=== PATIENT | female | born 1985 | race Caucasian/White ===

== ENCOUNTER 2019-04-25 05:12 | Emergency (ER) | payer MEDICAID, SELFPAY ==
[2019-04-25 05:25] VITALS: BP 132/85; PULSE 100; RESP 18; TEMP 37.2; O2SAT 97; BMI 30.1
--- NOTE | 2019-04-25 05:33 | PC.NURSE ---
Patient states she started feeling like crap yesterday morning. Patient states she is having weakness, fatigue, and that she had a fever yesterday. Patient states she has a dry cough and congestion and that it is making it feel like its hard to catch her breath.
[2019-04-25 05:38] VITALS: BP 115/85; PULSE 93; RESP 18; O2SAT 96
--- NOTE | 2019-04-25 05:38 | ED_ITS ---
Entered by Sharita Bar, acting as scribe for Teja Parish DO Apr 25, 2019 05:12 HPI - Fever General: Chief Complaint: Fever Stated Complaint: FLU SYMPTOMS Time Seen by Provider: 04/25/19 05:39 Source: patient Mode of arrival: ambulatory History of Present Illness: HPI Narrative: 33 y/o female presents to the ED with complaint of cough, body aches and PRATT. Pt states this started yesterday morning. 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 She denies N/V/D but had a temp of 102 yesterday. She reports coughing to the point of having chest discomfort. MD elicited complaint: malaise and other (cough, body aches) Onset (ago): day(s) Exacerbating factors: other (cough) Associated symptoms: Reports chills, chest pain (chest discomfort with coughing), cough and headache(s); Deny abdominal pain, confusion, dysuria, nausea, sinus pain or vomiting Review of Systems Const: Reports: fever and chills Eyes: Denies: change in vision or blurry vision ENMT: Reports: painful swallowing and post nasal drip; Denies: swelling of lips/tongue or facial/sinus pain Card: Reports: chest pain (chest discomfort with coughing); Denies: palpitations, irregular heart rhythm, edema or swelling of feet/ankles Resp: Reports: shortness of breath (with coughing) and non-productive cough; Denies: productive cough or wheezing GI: Denies: abdominal pain, nausea or vomiting : Denies: painful urination or blood in urine Musc: Reports: back pain; Denies: redness or joint warmth Skin/Breast: Denies: rash, itching or redness Neuro: Reports: headache; Denies: dizziness, vertigo or confusion Psych: Denies: anxiety PFSH ED PFSH: Social History Smoking and tobacco status: current every day smoker Female Reproductive History: Date of last menstrual period: 03/23/19 Physical Exam Const: COMMON NORMALS: alert GENERAL APPEARANCE: well developed and ill appearing ORIENTATION/CONSCIOUSNESS: Yes awake, Yes oriented to person, Yes oriented to place and Yes oriented to time HENMT: COMMON NORMALS: normocephalic, external ears normal, external nose normal and moist oral mucous membranes (dry) HEAD & SCALP: normocephalic; no scalp tenderness FACE & SINUS: normal facial exam NOSE: external nose normal and no nasal discharge EXTERNAL EAR: Yes external ears normal MOUTH: tongue normal THROAT: posterior oropharynx normal; no peritonsillar mass Eye: COMMON NORMALS: PERRL, EOMs intact bilaterally and conjunctivae normal EYELID: eyelids normal CONJUNCTIVA: Yes conjunctivae normal PUPIL: Yes PERRL Neck/C-Spine: COMMON NORMALS: full ROM Chest: COMMONS NORMALS: inspection of chest normal CHEST: Yes symmetrical chest wall rise and Yes tenderness Resp: COMMON NORMALS: clear to auscultation bilaterally EFFORT & INSPECTION: No tachypneic, No respiratory distress, No retractions, No uses accessory muscles and No tracheal deviation AUSCULTATION: clear to auscultation bilaterally and rhonchi (right side - cleared with cough) Cardio: COMMON NORMALS: regular rate and regular rhythm RATE: regular rate RHYTHM: regular rhythm HEART SOUNDS: no murmurs PERIPHERAL PULSES: radial pulses present GI: INSPECTION: No abdominal distension AUSCULTATION: No hyperactive bowel sounds and No hypoactive bowel sounds PALPATION: No tender, No guarding and No rigid PERCUSSION: no dullness to percussion and no tympanic to percussion Neuro: SENSORIUM/ORIENTATION: Yes alert, Yes oriented to person, Yes oriented to place and Yes oriented to time Psych: COMMON NORMALS: mental status grossly normal and speech normal SPEECH: Yes normal speech Skin: COMMON NORMALS: no rashes or lesions noted GENERAL SKIN EXAM: no rashes or lesions noted Course Vital Signs: Vital signs: Vital Signs Temperature 98.9 F 04/25/19 05:25 Pulse Rate 93 04/25/19 05:38 Respiratory Rate 14 04/25/19 06:04 Blood Pressure 115/85 04/25/19 05:38 Pulse Oximetry 96 04/25/19 06:04 MDM - Fever MDM Narrative: Medical decision making narrative: 33-year-old female presents with cough, some shortness of breath, fever, and body aches with a headache. She is influenza B positive. Her white blood cell count is 6.3. Her labs are otherwise benign. Her chest x-ray shows some perihilar opacity suggestive of viral pneumonitis. She had a brief period of decreased responsiveness while she was in x-ray, but returned to baseline quickly. This was right after receiving some pain medication and having a coughing fit. She had no true seizure. She will be discharged. Lab Data: Labs: Lab Results 04/25/19 04/25/19 04/25/19 Range/Units 05:36 05:56 06:08 WBC 6.3 (4.0-10.0) 10^3/ uL RBC 4.53 (4.1-5.3) 10^6/u L Hgb 14.0 (11.5-15.3) g/dL Hct 42.0 (37.0-47.0) % MCV 92.7 (81-99) fL MCH 30.9 (28.0-34.0) pg MCHC 33.3 (30.0-36.0) g/dL RDW 11.8 L (12.1-15.1) % Plt Count 344 (130-400) 10^3/c mm MPV 9.9 (7.4-10.4) fL Neut % (Auto) 72.1 % Lymph % (Auto) 18.0 % [place] % (Auto) 8.5 % Eos % (Auto) 0.5 % Baso % (Auto) 0.6 % Neut # (Auto) 4.6 (1.8-7.7) 10^3/u L Lymph # (Auto) 1.1 (0.8-4.8) 10^3/u L [place] # (Auto) 0.5 (0.2-0.9) 10^3/u L Eos # (Auto) 0.0 (0.0-0.8) 10^3/u L Baso # (Auto) 0.0 (0.0-0.1) 10^3/u L Nucleated RBC % (a uto) 0 % Nucleated RBCs # 0.0 /100WBC Sodium (136-145) mmol/L Potassium (3.5-5.1) mmol/L Chloride (98-107) mmol/L Carbon Dioxide (22-29) mmol/L Anion Gap (5-19) BUN (6-20) mg/dL Creatinine (0.5-0.9) mg/dL GFR Calculation (90-130) mL/min Glucose (65-115) mg/dL Calculated Osmolal ity (285-295) mOsm/k g Calcium (8.5-10.5) mg/dL Total Bilirubin (0.15-1.2) mg/dL AST (0-32) U/L ALT (0-33) U/L Alkaline Phosphata se (35-105) IU/L Total Protein (6.6-8.7) g/dL Albumin (3.5-5.2) g/dL Globulin (1.3-4.6) g/dL Urine Color Yellow (Yellow) Urine Appearance Clear (CLEAR) Urine pH 7 (5-7) Ur Specific Gravit y 1.005 (1.005-1.030) Urine Protein Neg (Negative) Urine Glucose (UA) Norm (Normal) Urine Ketones Negative (Negative) Urine Blood Neg (Negative) Urine Nitrate Negative (Negative) Urine Bilirubin Neg (NEGATIVE) Urine Urobilinogen Norm (Negative) mg/dL Ur Leukocyte Sharmila ase Negative (Negative) Influenza Type A A g Negative (Negative) POC Influenza B Ag Positive H (Negative) 04/25/19 Range/Units 06:27 WBC (4.0-10.0) 10^3/ uL RBC (4.1-5.3) 10^6/u L Hgb (11.5-15.3) g/dL Hct (37.0-47.0) % MCV (81-99) fL MCH (28.0-34.0) pg MCHC (30.0-36.0) g/dL RDW (12.1-15.1) % Plt Count (130-400) 10^3/c mm MPV (7.4-10.4) fL Neut % (Auto) % Lymph % (Auto) % [place] % (Auto) % Eos % (Auto) % Baso % (Auto) % Neut # (Auto) (1.8-7.7) 10^3/u L Lymph # (Auto) (0.8-4.8) 10^3/u L [place] # (Auto) (0.2-0.9) 10^3/u L Eos # (Auto) (0.0-0.8) 10^3/u L Baso # (Auto) (0.0-0.1) 10^3/u L Nucleated RBC % (a uto) % Nucleated RBCs # /100WBC Sodium 136 (136-145) mmol/L Potassium 3.7 (3.5-5.1) mmol/L Chloride 104 (98-107) mmol/L Carbon Dioxide 22 (22-29) mmol/L Anion Gap 13.7 (5-19) BUN 8 (6-20) mg/dL Creatinine 0.5 (0.5-0.9) mg/dL GFR Calculation 141.2 H (90-130) mL/min Glucose 111 (65-115) mg/dL Calculated Osmolal ity 279 L (285-295) mOsm/k g Calcium 8.7 (8.5-10.5) mg/dL Total Bilirubin 0.3 (0.15-1.2) mg/dL AST 13 (0-32) U/L ALT 12 (0-33) U/L Alkaline Phosphata se 64 (35-105) IU/L Total Protein 6.3 L (6.6-8.7) g/dL Albumin 3.7 (3.5-5.2) g/dL Globulin 2.6 (1.3-4.6) g/dL Urine Color (Yellow) Urine Appearance (CLEAR) Urine pH (5-7) Ur Specific Gravit y (1.005-1.030) Urine Protein (Negative) Urine Glucose (UA) (Normal) Urine Ketones (Negative) Urine Blood (Negative) Urine Nitrate (Negative) Urine Bilirubin (NEGATIVE) Urine Urobilinogen (Negative) mg/dL Ur Leukocyte Sharmila ase (Negative) Influenza Type A A g (Negative) POC Influenza B Ag (Negative) Discharge Plan Discharge Patient Disposition: Home, Self-Care Clinical Impression: Influenza Condition: Stable Prescriptions: New Tamiflu 75 mg capsule 75 mg PO BID 5 Days Qty: 10 RF: 0 Percocet 5-325 mg tablet 1 tab PO Q6H PRN (Reason: pain) Qty: 7 RF: 0 albuterol sulfate 90 mcg/actuation HFA aerosol inhaler 2 inh INHALATION Q6H PRN (Reason: shortness of breath) Qty: 18 RF: 0 Discharge Orders: Discharge Order (Routine); Ordered 04/25/19 Ordered By: Teja Parish Referrals: Jossie,Mchugh, LOADING DOCK HELPER [Primary Care Provider] - 1-3 days Discharge Diet: Advance as tolerated Discharge Activity: Limit activity as instructed Patient Instructions: Influenza (ED) Activity Restrictions/Additional Instructions: Return for worsening shortness of breath, inability to control fever, vomiting liquids or medications, worsening mental status, other concerning symptoms. Occasions as directed. Coding Level of Care Code ED Cryptozoologist for Chg Fwd Exam Comprehensive The documentation recorded by the Yosvany salazar Ashley, accurately reflects the service I personally performed and the decisions made by Jem lala Jeremy John, DO Apr 25, 2019 05:12
--- NOTE | 2019-04-25 05:44 | XRR_ITS ---
PROCEDURE INFORMATION: Exam: XR Chest, 1 View Exam date and time: 04/25/2019 6:19 AM Age: 33 years old Clinical indication: Shortness of breath; Additional info: SOB TECHNIQUE: Imaging protocol: XR of the chest Views: 1 view. COMPARISON: CR Chest 1 [place] [id number] 02/27/2018 5:58 AM FINDINGS: Lungs: Unremarkable. No consolidation. Pleural space: Unremarkable. No pleural effusion. No pneumothorax. Heart/Mediastinum: Unremarkable. No cardiomegaly. Bones/joints: Unremarkable. XR/XR chest 1V portable [id number] IMPRESSION: No acute findings.
[2019-04-25 06:04] VITALS: RESP 14; O2SAT 96
[2019-04-25] MEDS: morphine 4 mg/mL SDV 1 mL IVP (06:04)
[2019-04-25] MEDS: ketorolac 30 mg/mL INJ IVP (06:04)
[2019-04-25 06:05] LABS: Add Urine Microscopic? NO
[2019-04-25] MEDS: sodium chloride 0.9% 1,000 ML 999 ML IV (06:05)
[2019-04-25 06:09] LABS: Bilirubin Urine Neg (NEGATIVE); Blood Urine Neg (Negative); Glucose Urine UA Norm (Normal); Ketones Urine Negative (Negative); Leukocyte Esterase Urine Negative (Negative); Nitrate Urine Negative (Negative); Protein Urine Neg (Negative); Specific Gravity, Urine 1.005 (1.005-1.030); Urine Appearance Clear (CLEAR); Urine Color Yellow (Yellow); Urobilinogen Urine Norm (Negative); pH Urine 7 (5-7)
[2019-04-25 06:17] LABS: Basophils % 0.6 %; Eosinophils % 0.5 %; Lymphocytes # 1.1 10^3/uL (0.8-4.8); Mean Corpuscular HGB Conc 33.3 g/dL (30.0-36.0); Mean Corpuscular Hemoglobin 30.9 pg (28.0-34.0); Mean Corpuscular Volume 92.7 fL (81-99); Mean Platelet Volume 9.9 fL (7.4-10.4); Monocytes # 0.5 10^3/uL (0.2-0.9); Monocytes % 8.5 %; Neutrophils # 4.6 10^3/uL (1.8-7.7); Neutrophils % 72.1 %; Nucleated Red Blood Cells % 0 %; Platelet Count 344 10^3/cmm (130-400); Red Blood Count 4.53 10^6/uL (4.1-5.3); Red Cell Distribution Width 11.8 % (12.1-15.1); White Blood Count 6.3 10^3/uL (4.0-10.0)
[2019-04-25 06:19] LABS: Influenza A by IFA Negative (Negative); Influenza B by IFA Positive (Negative)
--- NOTE | 2019-04-25 06:28 | PC.NURSE ---
Patient moved from room 13 to room 10 and placed in negative pressure with droplet and airbourne precautions per HCP orders.
[2019-04-25 06:49] LABS: Alanine Aminotransferase 12 U/L (0-33); Albumin Level 3.7 g/dL (3.5-5.2); Alkaline Phosphatase 64 IU/L (35-105); Anion Gap 13.7 (5-19); Aspartate Amino Transferase 13 U/L (0-32); Blood Urea Nitrogen 8 mg/dL (6-20); Calcium 8.7 mg/dL (8.5-10.5); Carbon Dioxide 22 mmol/L (22-29); Chloride 104 mmol/L (98-107); Globulin 2.6 g/dL (1.3-4.6); Glomerular Filtration Rate 141.2 mL/min (90-130); Glucose 111 mg/dL (65-115); Osmolality Calculated 279 mOsm/kg (285-295); Potassium 3.7 mmol/L (3.5-5.1); Sodium 136 mmol/L (136-145); Total Bilirubin 0.3 mg/dL (0.15-1.2); Total Protein 6.3 g/dL (6.6-8.7)
[2019-04-25 07:07] VITALS: RESP 17
[2019-04-25] MEDS: fentaNYL 50 mcg/mL INJ 2mL 100 MCG IVP (07:07)
[2019-04-25 07:27] VITALS: BP 108/68; PULSE 86; RESP 17; TEMP 37.2; O2SAT 96
== END 2019-04-25 07:29 | disposition home or self-care (01) ==
PROVIDERS: Emergency Provider Emergency Medicine; Family Provider Nurse Practitioner Family; PCP Nurse Practitioner Family
DX: J11.1 Influenza due to unidentified influenza virus with other respiratory manifestations (principal); F17.200 Nicotine dependence, unspecified, uncomplicated
CPT/HCPCS: 12345; 71045; 80053; 81003; 85025; 87804; 96360; 96361; 96374; 96375; 99283; A9270; J1885; J2270; J3010; J7030

== ENCOUNTER 2020-05-11 07:36 | Emergency (ER) | payer MEDICAID, SELFPAY ==
[2020-05-11 07:40] VITALS: BP 137/92; PULSE 92; RESP 18; TEMP 36.9; O2SAT 99; BMI 27.4
--- NOTE | 2020-05-11 07:41 | XR_ITS ---
WS: [id number] Abdomen series: PA CHEST AND 2 VIEWS OF THE ABDOMEN HISTORY: abd pain/no BM several days COMPARISON: 12/07/2016 Lungs are clear and well aerated. Heart size is normal. No free air beneath the diaphragm. Mild inspissated fecal material in the distal colon. Mild constipation in the remaining colon. No air -fluid levels or obstruction. No soft tissue masses or soft tissue displacement. Calcification in the RIGHT upper abdomen may be in the liver. Prior cholecystectomy. XR/XR acute abdomen series [id number] IMPRESSION: 1. No pneumonia or free air. 2. Mild constipation and fecal obstipation in the distal colon.
[2020-05-11 07:47] VITALS: RESP 18
[2020-05-11] MEDS: ondansetron 2 mg/ML SDV 2 mL 4 MG IVP (08:01)
[2020-05-11 08:03] LABS: Basophils # 0.1 10^3/uL (0.0-0.1); Basophils % 0.9 %; Eosinophils # 0.1 10^3/uL (0.0-0.8); Eosinophils % 1.6 %; Hematocrit 44.9 % (37.0-47.0); Lymphocytes # 2.1 10^3/uL (0.8-4.8); Lymphocytes % 31.2 %; Mean Corpuscular HGB Conc 33.4 g/dL (30.0-36.0); Mean Corpuscular Hemoglobin 30.1 pg (28.0-34.0); Mean Platelet Volume 8.8 fL (7.4-10.4); Monocytes # 0.5 10^3/uL (0.2-0.9); Monocytes % 7.4 %; Neutrophils # 3.96 10^3/uL (1.8-7.7); Neutrophils % 58.6 %; Nucleated Red Blood Cells % 0 %; Platelet Count 391 10^3/cmm (130-400); Red Blood Count 4.99 10^6/uL (4.1-5.3); Red Cell Distribution Width 11.4 % (12.1-15.1); White Blood Count 6.8 10^3/uL (4.0-10.0)
[2020-05-11 08:05] LABS: Add Urine Microscopic? NO
--- NOTE | 2020-05-11 08:17 | W.ED.NAVMDI ---
HPI - Nausea/Vomiting/Diarrhea General: Chief complaint: Nausea/Vomiting/Diarrhea Stated complaint: NAUSEA, NO BOWEL MOVEMENTS FOR DAYS Time Seen by Provider: 05/11/20 07:38 History of Present Illness: HPI Narrative: 34-year-old female presents emergency room with complaint of abdominal discomfort. She is not had a bowel movement she states in about 2 weeks progressively increasing abdominal cramping. She is a lot of nausea and couple episodes of vomiting. She denies any hematochezia melena hematemesis or coffee-ground emesis. She not had any fever sweats or chills. She denies dysuria urgency or frequency. MD elicited complaint: nausea, vomiting and abdominal pain Pertinent past history: other (Chronic constipation) Onset (ago): week(s) (2) Associated nausea: Yes Associated abdominal pain: Yes Location of pain: Diffuse Pain consistency: intermittent Severity: moderate Quality: cramping Exacerbating factors: none Relieving factors: none Associated symtoms: Reports bloating, anorexia and nausea; Denies altered mental status, anxiety, change in vision, chest pain, cough, diaphoresis, decreased urine output, dizziness, dysuria, epistaxis, fatigue, fecal incontinence, fevers/chills, headache(s), malaise, myalgias, numbness, palpitations, rash, short of breath, syncope, tenesmus, tinnitus or weakness Review of Systems Const: Denies: fatigue, malaise or diaphoresis Eyes: Denies: change in vision ENMT: Denies: tinnitus or epistaxis Card: Denies: chest pain or palpitations Resp: Denies: dyspnea, productive cough or non-productive cough GI: Reports: nausea and bloating; Denies: fecal incontinence : Denies: dysuria Skin/Breast: Denies: rash or pruritus Neuro: Denies: headache(s) or dizziness Psych: Denies: anxiety PFSH ED PFSH: Social History Smoking and tobacco status: current every day smoker Female Reproductive History: Date of last menstrual period: 03/23/19 Physical Exam Const: COMMON NORMALS: no acute distress EXAM LIMITATIONS: no altered mental status GENERAL APPEARANCE: cooperative and comfortable ORIENTATION/CONSCIOUSNESS: Yes awake, Yes oriented to person, Yes oriented to place and Yes oriented to time HENMT: COMMON NORMALS: normocephalic, atraumatic and hearing grossly normal bilaterally HEAD & SCALP: normocephalic and atraumatic Neck/C-Spine: COMMON NORMALS: no JVD Resp: COMMON NORMALS: normal respiratory effort, No retractions, No use of accessory muscles and clear to auscultation bilaterally AUSCULTATION: clear to auscultation bilaterally Cardio: COMMON NORMALS: no JVD, regular rate, regular rhythm and No murmurs present (Cardio) RATE: regular rate RHYTHM: regular rhythm GI: COMMON NORMALS: Soft to palpation and No hepatosplenomegaly present AUSCULTATION: Yes normoactive bowel sounds PALPATION: Yes Soft to palpation, No Tenderness to palpation present (GI), No Guarding due to palpation present (GI) and Yes No hepatosplenomegaly present Extremity: COMMON NORMALS: normal to inspection, capillary refill normal, no clubbing, cyanosis or edema, no calf tenderness and no pedal edema Neuro: SENSORIUM/ORIENTATION: Yes oriented to person, Yes oriented to place and Yes oriented to time Skin: COMMON NORMALS: no rashes or lesions noted GENERAL SKIN EXAM: no rashes or lesions noted Course Vital Signs: Vital signs: Vital Signs Temperature 98.4 F 05/11/20 07:40 Pulse Rate 92 05/11/20 07:40 Respiratory Rate 18 05/11/20 07:47 Blood Pressure 137/92 05/11/20 07:40 Pulse Oximetry 99 05/11/20 07:40 MDM - Nausea/Vomiting/Diarrhea MDM Narrative: Medical decision making narrative: KUB shows large amount of retained stool. We will relay via enema. Discharge home with magnesium citrate. Encourage patient to use Veronica-Colace or Metamucil to prevent constipation in the future. She had been waiting until she is constipated and then starting Metamucil discussed with her that Metamucil not stimulate the bowels so it will not really relieve the problem. Lab Data: Labs: Lab Results 05/11/20 05/11/20 05/11/20 Range/Units 07:50 07:57 07:57 WBC 6.8 (4.0-10.0) 10^3/ uL RBC 4.99 (4.1-5.3) 10^6/u L Hgb 15.0 (11.5-15.3) g/dL Hct 44.9 (37.0-47.0) % MCV 90.0 (81-99) fL MCH 30.1 (28.0-34.0) pg MCHC 33.4 (30.0-36.0) g/dL RDW 11.4 L (12.1-15.1) % Plt Count 391 (130-400) 10^3/c mm MPV 8.8 (7.4-10.4) fL Neut % (Auto) 58.6 % Lymph % (Auto) 31.2 % Price % (Auto) 7.4 % Eos % (Auto) 1.6 % Baso % (Auto) 0.9 % Neut # (Auto) 3.96 (1.8-7.7) 10^3/u L Lymph # (Auto) 2.1 (0.8-4.8) 10^3/u L Price # (Auto) 0.5 (0.2-0.9) 10^3/u L Eos # (Auto) 0.1 (0.0-0.8) 10^3/u L Baso # (Auto) 0.1 (0.0-0.1) 10^3/u L Nucleated RBC % (a uto) 0 % Nucleated RBCs # 0.0 /100WBC Sodium (136-145) mmol/L Potassium (3.5-5.1) mmol/L Chloride (98-107) mmol/L Carbon Dioxide (22-29) mmol/L Anion Gap (5-19) BUN (6-20) mg/dL Creatinine (0.5-0.9) mg/dL GFR Calculation (90-130) mL/min Glucose (65-115) mg/dL Calculated Osmolal ity (285-295) mOsm/k g Lactic Acid 0.8 (0.5-2.2) mmol/L Calcium (8.5-10.5) mg/dL Total Bilirubin (0.15-1.2) mg/dL AST (0-32) U/L ALT (0-33) U/L Alkaline Phosphata se (35-105) IU/L Total Protein (6.6-8.7) g/dL Albumin (3.5-5.2) g/dL Globulin (1.3-4.6) g/dL Lipase (13-60) U/L Urine Color Yellow (Yellow) Urine Appearance Clear (CLEAR) Urine pH 6 (5-7) Ur Specific Gravit y 1.020 (1.005-1.030) Urine Protein Neg (Negative) Urine Glucose (UA) Norm (Normal) Urine Ketones Negative (Negative) Urine Blood Neg (Negative) Urine Nitrate Negative (Negative) Urine Bilirubin Neg (Negative) Urine Urobilinogen 1 H (Negative) mg/dL Ur Leukocyte Sharmila ase Negative (Negative) 05/11/20 Range/Units 07:57 WBC (4.0-10.0) 10^3/ uL RBC (4.1-5.3) 10^6/u L Hgb (11.5-15.3) g/dL Hct (37.0-47.0) % MCV (81-99) fL MCH (28.0-34.0) pg MCHC (30.0-36.0) g/dL RDW (12.1-15.1) % Plt Count (130-400) 10^3/c mm MPV (7.4-10.4) fL Neut % (Auto) % Lymph % (Auto) % [place] % (Auto) % Eos % (Auto) % Baso % (Auto) % Neut # (Auto) (1.8-7.7) 10^3/u L Lymph # (Auto) (0.8-4.8) 10^3/u L Price # (Auto) (0.2-0.9) 10^3/u L Eos # (Auto) (0.0-0.8) 10^3/u L Baso # (Auto) (0.0-0.1) 10^3/u L Nucleated RBC % (a uto) % Nucleated RBCs # /100WBC Sodium 136 (136-145) mmol/L Potassium 4.3 (3.5-5.1) mmol/L Chloride 102 (98-107) mmol/L Carbon Dioxide 25 (22-29) mmol/L Anion Gap 13.3 (5-19) BUN 13 (6-20) mg/dL Creatinine 0.5 (0.5-0.9) mg/dL GFR Calculation 140.4 H (90-130) mL/min Glucose 91 (65-115) mg/dL Calculated Osmolal ity 282 L (285-295) mOsm/k g Lactic Acid (0.5-2.2) mmol/L Calcium 9.0 (8.5-10.5) mg/dL Total Bilirubin 0.8 (0.15-1.2) mg/dL AST 16 (0-32) U/L ALT 18 (0-33) U/L Alkaline Phosphata se 81 (35-105) IU/L Total Protein 6.6 (6.6-8.7) g/dL Albumin 4.0 (3.5-5.2) g/dL Globulin 2.6 (1.3-4.6) g/dL Lipase 23 (13-60) U/L Urine Color (Yellow) Urine Appearance (CLEAR) Urine pH (5-7) Ur Specific Gravit y (1.005-1.030) Urine Protein (Negative) Urine Glucose (UA) (Normal) Urine Ketones (Negative) Urine Blood (Negative) Urine Nitrate (Negative) Urine Bilirubin (Negative) Urine Urobilinogen (Negative) mg/dL Ur Leukocyte Sharmila ase (Negative) Discharge Plan Discharge Patient Disposition: Home Clinical Impression: Constipation Condition: Stable Prescriptions: New magnesium citrate Solution 150 ml PO TID PRN (Reason: constipation) Qty: 296 RF: 0 No Action Percocet 5-325 mg tablet 1 tab PO Q6H PRN (Reason: pain) Qty: 7 RF: 0 albuterol sulfate 90 mcg/actuation HFA aerosol inhaler 2 inh INHALATION Q6H PRN (Reason: shortness of breath) Qty: 18 RF: 0 Discharge Orders: Discharge ED (Routine); Ordered 05/11/20 Ordered By: Reymundo Bonner Referrals: Jossie Mchugh APN [Primary Care Provider] - Discharge Diet: Usual diet Discharge Activity: Increase activity as tolerated Patient Instructions: Opioid Safety Activity Restrictions/Additional Instructions: Recommend mag citrate use 150 mL every 6-8 hours until adequate results achieved. Recommend Veronica-Colace [id number] 1 pill twice daily for ongoing prevention of constipation in the future. Coding Level of Care Code ED Architectural Practice Manager for Chg Fwd Exam Comprehensive
[2020-05-11] MEDS: sodium chloride 0.9% 1,000 ML 999 ML IV (08:25)
[2020-05-11 08:27] LABS: Alanine Aminotransferase 18 U/L (0-33); Alkaline Phosphatase 81 IU/L (35-105); Anion Gap 13.3 (5-19); Aspartate Amino Transferase 16 U/L (0-32); Blood Urea Nitrogen 13 mg/dL (6-20); Carbon Dioxide 25 mmol/L (22-29); Chloride 102 mmol/L (98-107); Globulin 2.6 g/dL (1.3-4.6); Glomerular Filtration Rate 140.4 mL/min (90-130); Glucose 91 mg/dL (65-115); Lipase 23 U/L (13-60); Osmolality Calculated 282 mOsm/kg (285-295); Potassium 4.3 mmol/L (3.5-5.1); Sodium 136 mmol/L (136-145); Total Bilirubin 0.8 mg/dL (0.15-1.2); Total Protein 6.6 g/dL (6.6-8.7)
[2020-05-11 08:28] LABS: Lactic Sepsis W/Reflex 0.8 mmol/L (0.5-2.2)
[2020-05-11 08:35] LABS: Bilirubin Urine Neg (Negative); Blood Urine Neg (Negative); Glucose Urine UA Norm (Normal); Ketones Urine Negative (Negative); Leukocyte Esterase Urine Negative (Negative); Nitrate Urine Negative (Negative); Protein Urine Neg (Negative); Urine Appearance Clear (CLEAR); Urine Color Yellow (Yellow); Urobilinogen Urine 1 mg/dL (Negative); pH Urine 6 (5-7)
[2020-05-11 09:48] VITALS: BP 123/94; PULSE 99; RESP 18; O2SAT 100
== END 2020-05-11 09:44 | disposition home or self-care (01) ==
PROVIDERS: Emergency Provider Family Medicine; PCP Nurse Practitioner Family
DX: K59.00 Constipation, unspecified (principal); F17.210 Nicotine dependence, cigarettes, uncomplicated
CPT/HCPCS: 74022; 80053; 81003; 83605; 83690; 85025; 96361; 96374; 99283; J2405; J7030

== ENCOUNTER → 2021-05-15 17:08 | Outpatient (BNVA) | payer MEDICAID, SELFPAY | PROVIDERS: PCP Family Medicine; Visit Provider Registered Nurse Neonatal Intensive Care | DX: N39.0 Urinary tract infection, site not specified (principal) | CPT/HCPCS: 81000 ==

== ENCOUNTER → 2021-07-03 09:46 | Outpatient (BNVA) | payer MEDICAID, SELFPAY | PROVIDERS: PCP Family Medicine; Visit Provider Family Medicine | DX: Z01.419 Encounter for gynecological examination (general) (routine) without abnormal findings (principal); N94.12 Deep dyspareunia; R63.5 Abnormal weight gain; I10 Essential (primary) hypertension | CPT/HCPCS: 80061; 83036; 84443; 87491; 87591; 87624; 87661 ==

== ENCOUNTER 2021-09-05 17:15 | Emergency (ER) | payer MEDICAID, SELFPAY ==
[2021-09-05 19:38] VITALS: BP 125/81; PULSE 98; RESP 18; TEMP 36.6; O2SAT 98; BMI 33.6
--- NOTE | 2021-09-05 20:16 | ED_ITS ---
HPI - General Adult General: Chief complaint: General Medical Stated complaint: Says her hemeroid fell out? Time Seen by Provider: 09/05/21 20:15 History of Present Illness: Patient is a 36-year-old female with history of high blood pressure and leg swelling presenting to the emergency room with complaints of painful hemorrhoid. Patient has no prior history of hemorrhoids but noticed this she had a hemorrhoid 1 day and half ago. Since then has had significant rectal pain. Patient was told to come to the emergency room. Patient denies any rectal bleeding, melena/hematochezia. No other focal complaints at this time Onset: 1 day and half ago Duration:ongoing Location: home Severity:moderate/severe Associated symptoms: Deny chest pain, dyspnea, nausea, rash, palpitations or vomiting Review of Systems Const: Denies: fever(s) or chills Eyes: Denies: change in vision ENMT: Denies: mouth pain Card: Denies: chest pain or palpitations Resp: Denies: dyspnea or non-productive cough GI: Denies: abdominal pain, nausea, vomiting or diarrhea : Reports: other (rectal pain); Denies: dysuria Musc: Denies: extremity pain Skin/Breast: Denies: rash or new lesions Neuro: Denies: weakness in extremities Psych: Reports: other (Normal mood) Stephen/Lymph: Denies: easy bruising PFS ED PFSH: Medical History Hypertension Surgical History S/P cholecystectomy Status post abdominoplasty Family History Mother COPD (chronic obstructive pulmonary disease) Social History Smoking and tobacco status: current every day smoker (vape ) e-cigarettes Female Reproductive History: Date of last menstrual period: 03/23/19 Physical Exam Const: COMMON NORMALS: alert HENMT: COMMON NORMALS: atraumatic HEAD & SCALP: atraumatic MOUTH: moist mucous membranes not abnormal Eye: COMMON NORMALS: EOMs intact bilaterally and conjunctivae normal CONJUNCTIVA: Yes conjunctivae normal Neck/C-Spine: COMMON NORMALS: full ROM and supple Resp: COMMON NORMALS: normal respiratory effort and clear to auscultation bilaterally AUSCULTATION: clear to auscultation bilaterally Cardio: COMMON NORMALS: regular rate RATE: regular rate GI: COMMON NORMALS: Soft to palpation and non-tender PALPATION: Yes Soft to palpation : OTHER: EXAM supervised by patient's nurse Brayan RN: 2 cm external hemorrhoid at the 3 o'clock position Extremity: COMMON NORMALS: full ROM Neuro: SENSORIUM/ORIENTATION: Yes alert MOTOR EXAM: No Abnormal motor strength present and Other motor observations present (no focal motor deficits) Psych: COMMON NORMALS: speech normal SPEECH: Yes normal speech MOOD & AFFECT: Yes euthymic mood Course Vital Signs: Vital signs: Vital Signs Temperature 97.9 F 09/05/21 19:38 Pulse Rate 98 09/05/21 19:38 Respiratory Rate 18 09/05/21 19:38 Blood Pressure 125/81 09/05/21 19:38 Pulse Oximetry 98 09/05/21 19:38 Oxygen Delivery Me thod 09/05/21 19:38 MDM - General Adult Medical Decision Making 36-year-old female with history hypertension presenting to the emergency room for concerns of rectal pain. On exam, patient has the 2 cm external hemorrhoid that is very tender to palpation. Given the fact that it looks purpleish and may be thrombosed. Patient is within the 72-hour window I have offered patient elliptical incision however patient declined this time electing for topical anesthetic instead. Patient received Urojet in the emergency room reports pain is significantly improved. I have given patient follow up with our briefcase sewer to be seen by our outpatient general surgery for external hemorroid. Patient aware of a call from our briefcase sewer to schedule for appointment(s) and verbalizes understanding of the importance of following up. Rx lidocaine rectal cream Disposition: Discharge. Patient counseled regarding diagnostic impression, treatment plan. Patient given ED strict return precautions to return for continuation, worsening, or development of new symptoms. Instructed to f/u w/ PCP regarding symptoms today. Patient verbalized understanding. Discharge Plan Discharge Patient Disposition: Home Clinical Impression: External hemorrhoid Condition: Stable Prescriptions: No Action hydrochlorothiazide 25 mg tablet 25 mg PO QAM Qty: 90 0RF levonorgestrel-ethinyl estrad [Vienva] 0.1-20 mg-mcg tablet 1 tab PO DAILY citalopram [Celexa] 10 mg tablet 10 mg PO DAILY Qty: 30 0RF metoprolol succinate 25 mg tablet extended release 24 hr 25 mg PO DAILY Qty: 90 0RF Discharge Orders: Discharge ED (Routine); Ordered 09/05/21 Ordered By: Elina Glez Referrals: Margret Yoo DO [Primary Care Provider] - Discharge Diet: Advance as tolerated Discharge Activity: Increase activity as tolerated Activity Restrictions/Additional Instructions: Our briefcase sewer will have you follow-up with [facility] in the next few days for hemorrhoids. You would be expected to have a phone call with our briefcase sewer who will put you on the schedule. You can expect a call from us in the next 2-3 days. If you don't hear from us, call us back in the emergency room at [phone]. Come back if yo uahve any significant pain, any rectal bleeding, severe pain, or any new or concerning complaints Coding Level of Care Code ED Supervisor Chassis Assembly for Deborah Fwrosangela Exam Comprehensive
[2021-09-05] MEDS: lidocaine 2% Urojet 20 mL TOPICAL (20:31)
--- NOTE | 2021-09-06 08:24 | DCPLANNER ---
Addendum entered by Ling Bosch 09/13/21 09:06: Patient had a follow up appointment for patient for 09.11.[address] Kohli at general surgery - patient did attend appointment. Addendum entered by Ling Bosch 09/11/21 11:04: Patient has a follow up appointment scheduled for Saturday, September 11, 2021 at 3:40 at [facility] Surgery with Dr. Kohli. Clinic will call patient with appointment information. Original Note: pit manager had message to schedule a follow up appointment for patient with general surgery. pit manager sent patients information to the front office staff at general surgery. Patients information will be printed and reviewed. Clinic will call patient with appointment information.
== END 2021-09-05 20:39 | disposition home or self-care (01) ==
PROVIDERS: Emergency Provider Emergency Medicine; PCP Family Medicine
DX: K64.4 Residual hemorrhoidal skin tags (principal); I10 Essential (primary) hypertension; F17.290 Nicotine dependence, other tobacco product, uncomplicated
CPT/HCPCS: 99283

== ENCOUNTER → 2021-09-11 15:50 | Outpatient (BNVA) | payer MEDICAID, SELFPAY | PROVIDERS: PCP Family Medicine; Visit Provider Surgery | DX: K92.1 Melena (principal) | CPT/HCPCS: 99203 ==

== ENCOUNTER 2021-10-04 11:20 | Day surgery (SDC) | payer MEDICAID, SELFPAY ==
[2021-10-03 16:36] VITALS: BMI 34.5
[2021-10-04] VITALS (7 sets, daily range): BP systolic 100–113; BP diastolic 68–85; PULSE 84–106; RESP 16–18; TEMP 36.2–37; O2SAT 94–96
[2021-10-04 11:41] LABS: OR HCG Qualitative Urine Negative (Negative)
[2021-10-04] MEDS: sodium chloride 0.9% 1,000 ML 30 ML IV (11:48)
--- NOTE | 2021-10-04 13:06 | W.PM.OPSUD ---
Surgery/Procedure H&P Update DATE OF PROCEDURE: October 04, 2021 DATE H&P PERFORMED: 09/11/21 PREOP DIAGNOSIS: hematochezia PLANNED PROCEDURE: Operation Date: 10/04/21 12:55 Proposed Procedures p colonoscopy and possible hemorrhoid banding [id number],K92.1,K64.4(Not Applicable) - DO garret Etienne Hemorroidectomy Hemorrhoid Banding(Not Applicable) - Simon Kohli DO
--- NOTE | 2021-10-04 13:28 | ANES.PREANE2 ---
Pre-Anesthetic Assessment Height/Weight: Height 1.6 m Weight 88.451 kg Temp Pulse Resp BP Pulse Ox O2 Del Method 98.6 F 106 H 16 113/85 96 10/04/21 11:39 10/04/21 11:39 10/04/21 11:39 10/04/21 11:39 10/04/21 11:39 10/04/21 11:40 Preop Diagnosis: hematochezia Operation Date: 10/04/21 12:55 Proposed Procedures p colonoscopy and possible hemorrhoid banding [id number],K92.1,K64.4(Not Applicable) - Simon Kohli DO s Hemorroidectomy Hemorrhoid Banding(Not Applicable) - Simon Kohli DO Familial anesthetic complications: none Was Beta Wing taken within 24 hours: Yes Was Clonidine taken within 24 hours: N/A Last intake: Intake Last Liquid Date 10/03/21 Last Liquid Time 22:00 Last Solid Date 10/03/21 Last Solid Time 21:00 Social Tobacco and No alcohol Exam alert, oriented x 3, clear to auscultation bilaterally and regular rate & rhythm Airway Submandibular: within normal limits Cervical ROM: within normal limits Mallampati: Class II Dentition: chipped CV/HEM Hypertension Metabolic Morbid Obesity Neuropsych Anxiety and Depression Anesthetic Plan ASA status: 2 Anesthesia: Choice Medications/Allergies Home Medications Medication Instructions Recorded Confirmed Last Taken Type levonorgestrel-ethinyl estradiol 1 tab PO DAILY 04/19/21 10/03/21 10/03/21 History 0.1 mg-20 mcg tablet (Vienva) hydrochlorothiazide 25 mg tablet 25 mg PO QAM #90 tabs 10/02/21 10/03/21 10/03/21 Rx metoprolol succinate 25 mg 25 mg PO DAILY #90 tabs 10/02/21 10/03/21 10/04/21 06:30 Rx tablet,extended release 24 hr Allergies Allergy/AdvReac Type Severity Reaction Status Date / Time No Known Allergies Allergy Verified 10/02/21 09:38 Current Medications Generic Name Dose Route Start Last Admin Trade Name Freq PRN Reason Stop Dose Admin Sodium Chloride 1,000 mls @ 30 mls/hr 10/04/21 11:45 10/04/21 11:48 Sodium Chloride 0.9% IV 10/05/21 11:44 30 mls/hr .Q24H TONA Administration PFSH Anesthesia Medical History Hypertension Surgical History S/P cholecystectomy Status post abdominoplasty Family History Mother COPD (chronic obstructive pulmonary disease) Social History Smoking and tobacco status: current every day smoker (vape) e-cigarettes Female Reproductive History Date of last menstrual period: 09/26/21 Data Anesthesia Cardiac Studies: No Data to Display
--- NOTE | 2021-10-04 16:49 | ANE.PACU2 ---
Inpatient post-anesthesia follow up: Airway intact: Yes Vital signs: Temperature 97.9 F Pulse Rate 85 Respiratory Rate 18 Blood Pressure 102/73 Pulse Oximetry 96 Oxygen Delivery Me thod Room Air Oxygen Flow Rate Fraction of Inspir ed Oxygen Hydration adequate: Yes Nausea and vomiting: No Pain level: 3 Mental status: Baseline
== END 2021-10-04 15:08 | disposition home or self-care (01) ==
PROVIDERS: Anesthesiology; PCP Family Medicine; Visit Provider Surgery
PROC: 0DJD8ZZ Inspection of Lower Intestinal Tract, Via Natural or Artificial Opening Endoscopic (ICD-10-PCS; CPT 45378; principal; 2021-10-04 12:45)
DX: K64.8 Other hemorrhoids (principal); K64.4 Residual hemorrhoidal skin tags; I10 Essential (primary) hypertension; E66.01 Morbid (severe) obesity due to excess calories; Z68.34 Body mass index [BMI] 34.0-34.9, adult; F17.290 Nicotine dependence, other tobacco product, uncomplicated
CPT/HCPCS: 45378; 81025; 84703; J2704; J7030

== ENCOUNTER 2022-01-26 09:11 | Emergency (ER) | payer MEDICAID, SELFPAY ==
[2022-01-26 09:16] VITALS: BP 131/83; PULSE 124; RESP 20; TEMP 37.3; O2SAT 99; BMI 34.9
--- NOTE | 2022-01-26 09:49 | ED_ITS ---
HPI - Fever General: Chief Complaint: Fever Stated Complaint: says throat is closing up Time Seen by Provider: 01/26/22 09:23 Source: patient Mode of arrival: ambulatory History of Present Illness: 36-year-old female who presents emergency room after a near syncopal episode. Yesterday she was in the bathtub felt like she was getting lightheaded dizzy she tried to walk to her bed and nearly passed out. No vomiting or diarrhea is complaining of a sore throat. No rashes. Subjectively she reports a fever although on arrival here temp is 99 1. Generalized body aches focuses on mostly having a swollen throat and sore throat. No difficulty with speech or swallowing. No respiratory distress. MD elicited complaint: other (Pharyngitis) Onset (ago): day(s) Exacerbating factors: nothing Relieving factors: nothing Associated symptoms: Reports headache(s), myalgias, nausea and sore throat; Deny abdominal pain, flank pain, chills, chest pain, confusion, cough, diarrhea, dysuria, extremity pain, nasal congestion, night sweats, rash, rhinorrhea, short of breath, sinus pain, stiffness or vomiting Treatments prior to arrival fever: none Review of Systems Const: Denies: fever(s), chills, fatigue, malaise or night sweats ENMT: Reports: throat pain, enlarged tonsils and odynophagia; Denies: nasal congestion or sinus pain Card: Denies: chest pain Resp: Denies: dyspnea, productive cough or non-productive cough GI: Reports: nausea; Denies: abdominal pain, vomiting or diarrhea : Denies: flank pain, dysuria, urinary frequency or urinary urgency Musc: Denies: neck pain, back pain or extremity pain Skin/Breast: Denies: rash or pruritus Neuro: Reports: headache(s); Denies: confusion Psych: Reports: anxiety PFSH ED PFSH: Medical History Hypertension Surgical History S/P cholecystectomy Status post abdominoplasty Family History Mother COPD (chronic obstructive pulmonary disease) Social History Smoking and tobacco status: current every day smoker (vape) e-cigarettes Female Reproductive History: Date of last menstrual period: 09/26/21 Physical Exam Const: GENERAL APPEARANCE: cooperative and comfortable ORIENTATION/CONSCIOUSNESS: Yes awake, Yes oriented to person, Yes oriented to place and Yes oriented to time HENMT: COMMON NORMALS: normocephalic, atraumatic, hearing grossly normal bilaterally, external ears normal, EAC's normal, TM's normal bilaterally, Normal nasal mucous membranes and turbinates present and moist oral mucous membranes HEAD & SCALP: normocephalic and atraumatic NOSE: Normal nasal mucous membranes and turbinates present EXTERNAL EAR: Yes external ears normal EXTERNAL AUDITORY CANAL: EAC's normal TYMPANIC MEMBRANE: TM's normal bilaterally THROAT: posterior oropharynx abnormal erythema and exudates Eye: COMMON NORMALS: Equal, round and reactive pupils present, EOMs intact bilaterally, conjunctivae normal and no scleral icterus CONJUNCTIVA: Yes conjunctivae normal PUPIL: Yes Equal, round and reactive pupils present Neck/C-Spine: COMMON NORMALS: full ROM, no lymphadenopathy, supple and no JVD Lymph: LYMPHATIC: lymphadenopathy submandibular Resp: COMMON NORMALS: normal respiratory effort, No retractions, No use of accessory muscles and clear to auscultation bilaterally AUSCULTATION: clear to auscultation bilaterally Cardio: COMMON NORMALS: no JVD, regular rate, regular rhythm and No murmurs present (Cardio) RATE: regular rate RHYTHM: regular rhythm GI: COMMON NORMALS: Soft to palpation and No hepatosplenomegaly present AUSCULTATION: Yes normoactive bowel sounds PALPATION: Yes Soft to palpation, No Tenderness to palpation present (GI), No Guarding due to palpation present (GI) and Yes No hepatosplenomegaly present Extremity: COMMON NORMALS: normal to inspection, capillary refill normal, no clubbing, cyanosis or edema, no calf tenderness and no pedal edema Neuro: SENSORIUM/ORIENTATION: Yes oriented to person, Yes oriented to place an d Yes oriented to time Skin: COMMON NORMALS: no rashes or lesions noted GENERAL SKIN EXAM: no rashes or lesions noted Course Vital Signs: Vital signs: Vital Signs Temperature 99.1 F 01/26/22 09:16 Pulse Rate 106 H 01/26/22 13:03 Respiratory Rate 20 H 01/26/22 09:16 Blood Pressure 117/81 01/26/22 11:30 Pulse Oximetry 95 01/26/22 13:03 Oxygen Delivery Me thod 01/26/22 11:00 MDM - Fever Medical Decision Making Significant pharyngitis she has improved with medications and fluids her strep was negative we will put her on clindamycin and steroids discharge home follow- up as needed Medical Records I reviewed the patient's medical records. Lab Data I reviewed the patient's lab results. 01/26/22 10:10 01/26/22 10:10 Laboratory Results WBC 16.2 10^3/uL (4.0-10.0) H 01/26/22 10:10 RBC 4.71 10^6/uL (4.1-5.3) 01/26/22 10:10 Hgb 14.2 g/dL (11.5-15.3) 01/26/22 10:10 Hct 42.5 % (37.0-47.0) 01/26/22 10:10 MCV 90.2 fl (81-99) 01/26/22 10:10 MCH 30.1 pg (28.0-34.0) 01/26/22 10:10 MCHC 33.4 g/dL (30.0-36.0) 01/26/22 10:10 RDW 12.5 % (12.1-15.1) 01/26/22 10:10 Plt Count 346 10^3/cmm (130-400) 01/26/22 10:10 MPV 9.1 fL (7.4-10.4) 01/26/22 10:10 Neut % (Auto) 88.7 % 01/26/22 10:10 Lymph % (Auto) 6.0 % 01/26/22 10:10 [place] % (Auto) 4.6 % 01/26/22 10:10 Eos % (Auto) 0.0 % 01/26/22 10:10 Baso % (Auto) 0.3 % 01/26/22 10:10 Neut # (Auto) 14.39 10^3/uL (1.8-7.7) H 01/26/22 10:10 Lymph # (Auto) 1.0 10^3/uL (0.8-4.8) 01/26/22 10:10 [place] # (Auto) 0.8 10^3/uL (0.2-0.9) 01/26/22 10:10 Eos # (Auto) 0.0 10^3/uL (0.0-0.8) 01/26/22 10:10 Baso # (Auto) 0.1 10^3/uL (0.0-0.1) 01/26/22 10:10 Nucleated RBC % (auto) 0 % 01/26/22 10:10 Nucleated RBCs # 0.0 /100WBC 01/26/22 10:10 Sodium 133 mmol/L (136-145) L 01/26/22 10:10 Potassium 3.5 mmol/L (3.5-5.1) 01/26/22 10:10 Chloride 98 mmol/L (98-107) 01/26/22 10:10 Carbon Dioxide 23 mmol/L (22-29) 01/26/22 10:10 Anion Gap 15.5 (5-19) 01/26/22 10:10 BUN 9 mg/dL (6-20) 01/26/22 10:10 Creatinine 0.6 mg/dL (0.5-0.9) 01/26/22 10:10 GFR Calculation 112.5 mL/min (90-130) 01/26/22 10:10 Glucose 93 mg/dL (65-115) 01/26/22 10:10 Calculated Osmolality 274 mOsm/kg (285-295) L 01/26/22 10:10 Calcium 9.2 mg/dL (8.5-10.5) 01/26/22 10:10 Group A Strep Rapid Negative (Negative) 01/26/22 10:10 Discharge Plan Discharge Patient Disposition: Home Clinical Impression: Pharyngitis Condition: Stable Prescriptions: New clindamycin HCl 300 mg capsule 300 mg PO QID 10 Days Qty: 40 0RF prednisone 20 mg tablet 20 mg PO TID Qty: 15 0RF Rx Instructions: 1 p.o. 3 times daily x3 days, 1 p.o. twice daily x2 days, 1 p.o. daily x2 days promethazine 25 mg tablet 25 mg PO Q6H PRN (Reason: nausea and vomiting) Qty: 20 0RF No Action hydrochlorothiazide 25 mg tablet 25 mg PO QAM Qty: 90 1RF levonorgestrel-ethinyl estrad [Vienva] 0.1-20 mg-mcg tablet 1 tab PO DAILY metoprolol succinate 25 mg tablet extended release 24 hr 25 mg PO DAILY Qty: 90 1RF Proctosol HC 2.5 % cream with perineal applicator 1 applic [place] QID Qty: 30 1RF Rx Instructions: Apply 4 times per day for 10 days. May repeat for another 10 days if no resolution Discharge Orders: Discharge ED (Routine); Ordered 01/26/22 Ordered By: Reymundo Bonner Referrals: Margret Yoo DO [Primary Care Provider] - Discharge Diet: Advance as tolerated Discharge Activity: Increase activity as tolerated Patient Instructions: Opioid Safety, Pain Management Activity Restrictions/Additional Instructions: You were seen today for sore throat. Your strep was negative based on your exam I still recommend that you take antibiotics. Clindamycin 1 tablet every 6 hours for 10 days. Additionally recommend that you start steroid taper tomorrow that will help with the inflammation. There is promethazine that you can use as needed for nausea. Follow-up with your primary care doctor if not improving. Coding Level of Care Code ED Tanker Truck Driver for Chg Fwd Exam Comprehensive
[2022-01-26 09:50] VITALS: PULSE 115; O2SAT 94
[2022-01-26] MEDS: ketorolac 30 mg/mL INJ IVP (10:05)
[2022-01-26] MEDS: dexamethasone 10 mg/mL INJ IVP (10:05)
[2022-01-26] MEDS: promethazine 25 mg/mL SDV 1 mL IM (10:06)
[2022-01-26 10:20] VITALS: BP 125/76; PULSE 100; O2SAT 94
[2022-01-26] MEDS: sodium chloride 0.9% 1,000 ML 999 ML IV (10:23)
[2022-01-26 10:33] LABS: Basophils # 0.1 10^3/uL (0.0-0.1); Basophils % 0.3 %; Hematocrit 42.5 % (37.0-47.0); Hemoglobin 14.2 g/dL (11.5-15.3); Mean Corpuscular HGB Conc 33.4 g/dL (30.0-36.0); Mean Corpuscular Hemoglobin 30.1 pg (28.0-34.0); Mean Corpuscular Volume 90.2 fl (81-99); Mean Platelet Volume 9.1 fL (7.4-10.4); Monocytes # 0.8 10^3/uL (0.2-0.9); Monocytes % 4.6 %; Neutrophils # 14.39 10^3/uL (1.8-7.7); Neutrophils % 88.7 %; Nucleated Red Blood Cells % 0 %; Platelet Count 346 10^3/cmm (130-400); Red Blood Count 4.71 10^6/uL (4.1-5.3); Red Cell Distribution Width 12.5 % (12.1-15.1); White Blood Count 16.2 10^3/uL (4.0-10.0)
[2022-01-26 10:44] LABS: Anion Gap 15.5 (5-19); Blood Urea Nitrogen 9 mg/dL (6-20); Calcium 9.2 mg/dL (8.5-10.5); Carbon Dioxide 23 mmol/L (22-29); Chloride 98 mmol/L (98-107); Glomerular Filtration Rate 112.5 mL/min (90-130); Glucose 93 mg/dL (65-115); Osmolality Calculated 274 mOsm/kg (285-295); Potassium 3.5 mmol/L (3.5-5.1); Sodium 133 mmol/L (136-145)
[2022-01-26 11:00] VITALS: BP 117/66; O2SAT 94
[2022-01-26 11:30] VITALS: BP 117/81; O2SAT 94
[2022-01-26 12:19] LABS: Rapid Strep A Test Negative (Negative)
[2022-01-26 13:03] VITALS: PULSE 106; O2SAT 95
== END 2022-01-26 13:00 | disposition home or self-care (01) ==
PROVIDERS: Emergency Provider Family Medicine; PCP Family Medicine
DX: J02.9 Acute pharyngitis, unspecified (principal); I10 Essential (primary) hypertension; F17.290 Nicotine dependence, other tobacco product, uncomplicated
CPT/HCPCS: 36415; 80048; 85025; 87081; 87880; 96361; 96372; 96374; 96375; 99284; J1100; J1885; J2550; J7030

== ENCOUNTER → 2022-02-11 18:17 | Outpatient (BNVA) | payer MEDICAID, SELFPAY | PROVIDERS: PCP Family Medicine; Visit Provider Family Medicine | DX: S93.401A Sprain of unspecified ligament of right ankle, initial encounter (principal); X58.XXXA Exposure to other specified factors, initial encounter | CPT/HCPCS: 73610 ==

== ENCOUNTER → 2022-07-04 08:26 | Outpatient (BNVA) | payer MEDICAID, SELFPAY | PROVIDERS: PCP Family Medicine; Visit Provider Family Medicine | DX: Z87.42 Personal history of other diseases of the female genital tract (principal); Z20.2 Contact with and (suspected) exposure to infections with a predominantly sexual mode of transmission | CPT/HCPCS: 87491; 87591; 87624; 87661 ==

== ENCOUNTER → 2022-07-05 08:35 | Outpatient (BNVA) | payer MEDICAID, SELFPAY | PROVIDERS: PCP Family Medicine; Visit Provider Family Medicine | DX: Z87.42 Personal history of other diseases of the female genital tract (principal); I10 Essential (primary) hypertension; R60.0 Localized edema | CPT/HCPCS: 87491; 87591; 87661 ==

== ENCOUNTER → 2022-09-06 09:54 | Outpatient (BNVA) | payer MEDICAID, SELFPAY | PROVIDERS: PCP Family Medicine; Visit Provider Obstetrics & Gynecology | DX: Z01.818 Encounter for other preprocedural examination (principal) | CPT/HCPCS: 81025; 88305 ==

== ENCOUNTER 2023-01-26 08:04 | Emergency (ER) | payer MEDICAID, SELFPAY ==
[2023-01-26] VITALS (7 sets, daily range): BP systolic 106–136; BP diastolic 64–94; PULSE 81–94; RESP 17–23; TEMP 36.4; O2SAT 94–99; BMI 27.8
--- NOTE | 2023-01-26 08:25 | CTR_ITS ---
PROCEDURE INFORMATION: Exam: CT Abdomen And Pelvis With Contrast Exam date and time: 01/26/2023 9:21 AM Age: 37 years old Clinical indication: Left lower quadrant abdominal pain. Prior cholecystectomy. TECHNIQUE: Imaging protocol: Computed tomography of the abdomen and pelvis with contrast. Radiation optimization: All CT scans at this facility use at least one of these dose optimization techniques: automated exposure control; mA and/or kV adjustment per patient size (includes targeted exams where dose is matched to clinical indication); or iterative reconstruction. Contrast material: OMNI 350; Contrast volume: 100 ml; Contrast route: INTRAVENOUS (IV); REPORTING DATA: Count of CT and Cardiac NM exams in prior 12 months: This patient has received 0 known CTs and 0 known cardiac nuclear medicine studies in the 12 months prior to the current study. COMPARISON: CT abdomen pelvis w con* [id number] 03/09/2018 7:28 PM RADIATION DOSE METRICS: Total DLP (mGy-cm): 496.53 FINDINGS: Lungs: Minimal atelectasis at the lung bases. No pericardial effusion. Diaphragm: No hiatal hernia. Liver: The liver is enlarged measuring 17.8 cm. A hepatic hypodensity measuring less than 5 mm too small to accurately characterize and requires no follow-up. Gallbladder and bile ducts: The gallbladder has been removed. Intra and extrahepatic biliary ductal prominence is noted; this is common following cholecystectomy. Pancreas: The pancreas is unremarkable. Spleen: The spleen is unremarkable. Adrenal glands: The adrenal glands are unremarkable. Kidneys and ureters: Subcentimeter right renal hypodensities are too small to accurately characterize and require no follow-up. No nephrolithiasis is seen. There is minimal prominence of the left renal collecting system that appears similar to 2019. No obstructive stone or lesion is seen. Stomach and bowel: There are numerous fluid-filled loops of small bowel. There is fluid in the ascending colon. These findings are nonspecific but can be seen with enteritis or other causes of watery diarrhea. A few of the loops are mildly prominent; however, the loops of mildly prominent bowel are discontinuous. Obstruction is considered unlikely. The colon is unremarkable. Appendix: The appendix is unremarkable. Intraperitoneal space: No free intraperitoneal air is identified. Vasculature: No abdominal aortic aneurysm. Lymph nodes: No retroperitoneal lymphadenopathy. Urinary bladder: The bladder is partially decompressed. Reproductive: Possible small uterine fibroid measuring 0.8 cm. Bones/joints: There is a sclerotic lesion in the left iliac bone that appears similar to 2019. Given long-term stability, this likely represents a benign bone lesion such as a large enostosis. No acute fracture is seen. Soft tissues: Tiny fat containing umbilical hernia. CT/CT abdomen pelvis w con* [id number] IMPRESSION: 1. Numerous fluid-filled loops of small bowel. There is fluid in the ascending colon. These findings are nonspecific but can be seen with enteritis or other causes of watery diarrhea. A few of the loops are mildly prominent; however, the loops of mildly prominent bowel are discontinuous. Obstruction is considered unlikely. 2. No nephrolithiasis is seen. There is minimal prominence of the left renal collecting system that appears similar to 2019. No obstructive stone or lesion is seen. 3. Sclerotic lesion in the left iliac bone that appears similar to 2019. Given long-term stability, this likely represents a benign bone lesion such as a large enostosis. 4. Possible small uterine fibroid. 5. Hepatomegaly. COMMENTS: Consistent with the [employer]'s Incidental Findings Committee white paper (J Am Elizabeth Radiol 2018): Any incidental renal lesion less than 1 cm or classified as too small to characterize, or any incidental cystic renal lesion characterized as simple-appearing, is likely benign. No follow-up imaging is recommended for these lesions per consensus recommendations based on imaging criteria.
--- NOTE | 2023-01-26 08:25 | ED_ITS ---
HPI - Abdominal Pain 2 General: Chief Complaint: Abdominal Pain Stated Complaint: abd pain,chills Time Seen by Provider: 01/26/23 08:05 Source: patient Mode of arrival: ambulatory Limitations: no limitations History of Present Illness: 37-year-old female states that she has h ad left lower quadrant pain since last night it has been intermittent in nature sharp and stabbing. States she has had some diarrhea and nausea as well denies any fevers denies any dysuria denies any worsening improving factors. MD elicited complaint: abdominal pain Location: LLQ Severity: moderate Quality: cramping Radiation: none Associated Symptoms: Reports diarrhea and nausea; Denies chills, dysuria, fever(s) and vomiting Review of Systems 2 Const: Denies: fever(s), chills, body aches or change in appetite ENMT: Denies: throat pain or dental pain Card: Denies: chest pain Resp: Denies: dyspnea GI: Reports: abdominal pain, nausea and diarrhea; Denies: vomiting : Denies: dysuria Musc: Denies: neck pain or back pain Skin/Breast: Denies: rash Neuro: Denies: headache(s) PFSH ED 2 PFSH: Medical History Hypertension Surgical History S/P cholecystectomy Status post abdominoplasty Family History Grandmother Diabetes Denies family history of Colon cancer Ovarian cancer Heart disease Hypercholesteremia Breast cancer Hypertension Uterine cancer Thyroid disease Stroke Physical Exam 2 Const: COMMON NORMALS: no acute distress, patient oriented x3 and healthy appearing HENMT: COMMON NORMALS: normocephalic and atraumatic HEAD & SCALP: n ormocephalic and atraumatic Neck/C-Spine: COMMON NORMALS: full ROM and supple Chest: COMMONS NORMALS: normal inspection of the chest Resp: COMMON NORMALS: normal respiratory effort GI: COMMON NORMALS: Normal to inspection, nondistended, normoactive bowel sounds present, Soft to palpation and no masses PALPATION: Yes Soft to palpation and Yes Tenderness to palpation present (GI) Details: LLQ Extremity: COMMON NORMALS: normal to inspection and full ROM Neuro: COMMON NORMALS: patient oriented x3, moves all extremities and no focal motor deficits Psych: COMMON NORMALS: mental status grossly normal, Normal thought process present and cooperative THOUGHT PROCESS: Normal thought process present Skin: COMMON NORMALS: no rashes or lesions noted and no wounds GENERAL SKIN EXAM: no rashes or lesions noted Course 2 Vital Signs: Vital signs: Vital Signs Temperature 97.6 F 01/26/23 08:21 Pulse Rate 94 01/26/23 09:33 Respiratory Rate 23 H 01/26/23 09:43 Blood Pressure 131/91 01/26/23 09:33 Pulse Oximetry 99 01/26/23 09:33 Oxygen Delivery Me thod Room Air 01/26/23 09:33 MDM - Abdominal Pain Medical Decision Making Patient presents here with abdominal pain along with diarrhea likely gastroenteritis blood work here is normal CT shows likely enteritis no signs of bacterial infection will prescribe her pain meds nausea medicine she is follow- up with PCP and return if worsening. Medical Records I reviewed the patient's medical records. Lab Data I reviewed the patient's lab results. 01/26/23 08:35 01/26/23 08:35 Labs/Radiology: Radiology Impressions Abdomen/Pelvis CT 01/26/23 08:25 IMPRESSION: 1. Numerous fluid-filled loops of small bowel. There is fluid in the ascending colon. These findings are nonspecific but can be seen with enteritis or other causes of watery diarrhea. A few of the loops are mildly prominent; however, the loops of mildly prominent bowel are discontinuous. Obstruction is considered unlikely. 2. No nephrolithiasis is seen. There is minimal prominence of the left renal collecting system that appears similar to 2019. No obstructive stone or lesion is seen. 3. Sclerotic lesion in the left iliac bone that appears similar to 2019. Given long-term stability, this likely represents a benign bone lesion such as a large enostosis. 4. Possible small uterine fibroid. 5. Hepatomegaly. COMMENTS: Consistent with the [employer]'s Incidental Findings Committee white paper (J Am Elizabeth Radiol 2018): Any incidental renal lesion less than 1 cm or classified as too small to characterize, or any incidental cystic renal lesion characterized as simple-appearing, is likely benign. No follow-up imaging is recommended for these lesions per consensus recommendations based on imaging criteria. Laboratory Results WBC 7.80 10^3/uL (3.29-11.43) 12/17/23 08:35 RBC 4.86 10^6/uL (3.85-5.65) 01/26/23 08:35 Hgb 14.70 g/dL (11.27-16.99) 01/26/23 08:35 Hct 42.7 % (36-47) 01/26/23 08:35 MCV 87.9 fl (85-98) 01/26/23 08:35 MCH 30.2 pg (27-33) 01/26/23 08:35 MCHC 34.4 g/dL (30-55) 01/26/23 08:35 RDW 12.1 % (12.1-15.1) 01/26/23 08:35 Plt Count 318 10^3/cmm (157-399) 01/26/23 08:35 MPV 8.8 fL (7.4-10.4) 01/26/23 08:35 Neut % (Auto) 66.4 % 01/26/23 08:35 Lymph % (Auto) 23.3 % 01/26/23 08:35 [place] % (Auto) 9.0 % 01/26/23 08:35 Eos % (Auto) 0.8 % 01/26/23 08:35 Baso % (Auto) 0.4 % 01/26/23 08:35 Neut # (Auto) 5.18 10^3/uL (1.8-7.7) 01/26/23 08:35 Lymph # (Auto) 1.8 10^3/uL (0.8-4.8) 01/26/23 08:35 [place] # (Auto) 0.7 10^3/uL (0.2-0.9) 01/26/23 08:35 Eos # (Auto) 0.1 10^3/uL (0.0-0.8) 01/26/23 08:35 Baso # (Auto) 0.0 10^3/uL (0.0-0.1) 01/26/23 08:35 Nucleated RBC % (auto) 0 % 01/26/23 08:35 Nucleated RBCs # 0.0 /100WBC 01/26/23 08:35 Sodium 135 mmol/L (136-145) L 01/26/23 08:35 Potassium 3.4 mmol/L (3.5-5.1) L 01/26/23 08:35 Chloride 101 mmol/L (98-107) 01/26/23 08:35 Carbon Dioxide 23 mmol/L (22-29) 01/26/23 08:35 Anion Gap 14.4 (5-19) 01/26/23 08:35 BUN 12 mg/dL (6-20) 01/26/23 08:35 Creatinine 0.5 mg/dL (0.5-0.9) 01/26/23 08:35 GFR Calculation 138.1 mL/min (90-130) H 01/26/23 08:35 Glucose 91 mg/dL (65-115) 01/26/23 08:35 Calculated Osmolality 279 mOsm/kg (285-295) L 01/26/23 08:35 Calcium 8.9 mg/dL (8.5-10.5) 01/26/23 08:35 Total Bilirubin 1.1 mg/dL (0.15-1.2) 01/26/23 08:35 AST 14 U/L (0-32) 01/26/23 08:35 ALT 19 U/L (0-33) 01/26/23 08:35 Alkaline Phosphatase 64 U/L (35-105) 01/26/23 08:35 Total Protein 6.6 g/dL (6.6-8.7) 01/26/23 08:35 Albumin 3.8 g/dL (3.5-5.2) 01/26/23 08:35 Globulin 2.8 g/dL (1.3-4.6) 01/26/23 08:35 Lipase 30 U/L (13-60) 01/26/23 08:35 HCG, Qual Negative (Negative) 01/26/23 08:35 Urine Color Yellow (Yellow) 01/26/23 08:45 Urine Appearance Clear (CLEAR) 01/26/23 08:45 Urine pH 5 (5-7) 01/26/23 08:45 Ur Specific [place] 1.015 (1.005-1.030) 01/26/23 08:45 Urine Protein Neg (Negative) 01/26/23 08:45 Urine Glucose (UA) Norm (Normal) 01/26/23 08:45 Urine Ketones Negative (Negative) 01/26/23 08:45 Urine Blood Neg (Negative) 01/26/23 08:45 Urine Nitrate Negative (Negative) 01/26/23 08:45 Urine Bilirubin 1+ (Negative) H 01/26/23 08:45 Urine Urobilinogen 1 mg/dL (Negative) H 01/26/23 08:45 Ur Leukocyte Esterase Negative (Negative) 01/26/23 08:45 All radiology interpretation(s) finalized by discharge Discharge Plan Discharge Patient Disposition: Home Clinical Impression: Diarrhea Abdominal pain Qualifiers: Abdominal location: generalized Qualified Code(s): R10.84 - Generalized abdominal pain Condition: Stable Prescriptions: New hydrocodone-acetaminophen 5-325 mg tablet 1 tab PO Q6H PRN (Reason: pain) Qty: 14 0RF ondansetron 4 mg tablet,disintegrating 4 mg PO Q6H PRN (Reason: nausea and vomiting) Qty: 14 0RF No Action hydrochlorothiazide 25 mg tablet 25 mg PO QAM Qty: 90 1RF Ventolin HFA 90 mcg/actuation HFA aerosol inhaler 2 puff INHALATION QID PRN (Reason: Shortness Of Breath) Semaglutide 2.65mg/L-Carnitine 50 unit SUBCUT Q7D Rx Instructions: on friday Unknown [place] Mg 0.5 tab PO .ONE TIME DOSE Vienva 0.1-20 mg-mcg tablet 1 tab PO QAM metoprolol succinate 25 mg tablet extended release 24 hr 25 mg PO BEDTIME Discharge Orders: Discharge ED (Routine); Ordered 01/26/23 Ordered By: Sergio Pat Referrals: Margret Yoo DO [Primary Care Provider] - 1-3 days Discharge Diet: Advance as tolerated Discharge Activity: Resume usual activity Patient Instructions: Gastroenteritis (ED), Abdominal Pain (ED) Coding Level of Care Code ED Core Drill Operator Helper for Deborah Escalona
[2023-01-26] MEDS: morphine 4 mg/mL SDV 1 mL IVP (08:43)
[2023-01-26] MEDS: ondansetron 2 mg/ML SDV 2 mL 4 MG IVP (08:43)
[2023-01-26] MEDS: sodium chloride 0.9% 1,000 ML 999 ML IV (08:48)
[2023-01-26 08:59] LABS: Basophils % 0.4 %; Eosinophils # 0.1 10^3/uL (0.0-0.8); Eosinophils % 0.8 %; Hematocrit 42.7 % (36-47); Lymphocytes # 1.8 10^3/uL (0.8-4.8); Lymphocytes % 23.3 %; Mean Corpuscular HGB Conc 34.4 g/dL (30-55); Mean Corpuscular Hemoglobin 30.2 pg (27-33); Mean Corpuscular Volume 87.9 fl (85-98); Mean Platelet Volume 8.8 fL (7.4-10.4); Monocytes # 0.7 10^3/uL (0.2-0.9); Neutrophils # 5.18 10^3/uL (1.8-7.7); Neutrophils % 66.4 %; Nucleated Red Blood Cells % 0 %; Platelet Count 318 10^3/cmm (157-399); Red Blood Count 4.86 10^6/uL (3.85-5.65); Red Cell Distribution Width 12.1 % (12.1-15.1)
[2023-01-26 09:04] LABS: Add Urine Microscopic? NO; Charge for UA Resulting for Rev
[2023-01-26 09:08] LABS: Specific Gravity, Urine 1.015 (1.005-1.030); Urine Appearance Clear (CLEAR); Urine Color Yellow (Yellow); pH Urine 5 (5-7)
[2023-01-26 09:09] LABS: Bilirubin Urine 1+ (Negative); Blood Urine Neg (Negative); Glucose Urine UA Norm (Normal); Ketones Urine Negative (Negative); Leukocyte Esterase Urine Negative (Negative); Nitrate Urine Negative (Negative); Protein Urine Neg (Negative); Urobilinogen Urine 1 mg/dL (Negative)
[2023-01-26 09:12] LABS: Alanine Aminotransferase 19 U/L (0-33); Albumin Level 3.8 g/dL (3.5-5.2); Alkaline Phosphatase 64 U/L (35-105); Anion Gap 14.4 (5-19); Aspartate Amino Transferase 14 U/L (0-32); Blood Urea Nitrogen 12 mg/dL (6-20); Calcium 8.9 mg/dL (8.5-10.5); Carbon Dioxide 23 mmol/L (22-29); Chloride 101 mmol/L (98-107); Globulin 2.8 g/dL (1.3-4.6); Glomerular Filtration Rate 138.1 mL/min (90-130); Glucose 91 mg/dL (65-115); Lipase 30 U/L (13-60); Osmolality Calculated 279 mOsm/kg (285-295); Potassium 3.4 mmol/L (3.5-5.1); Sodium 135 mmol/L (136-145); Total Bilirubin 1.1 mg/dL (0.15-1.2); Total Protein 6.6 g/dL (6.6-8.7)
[2023-01-26 09:16] LABS: HCG, Serum Qual Negative (Negative)
[2023-01-26] MEDS: iohexol 350 mg/mL 500 mL Btl (per mL) IV (09:24)
[2023-01-26] MEDS: HYDROmorphone 1 mg/mL INJ 1 mL IVP (09:43)
== END 2023-01-26 10:04 | disposition home or self-care (01) ==
PROVIDERS: Emergency Provider Emergency Medicine; PCP Family Medicine
DX: R10.84 Generalized abdominal pain (principal); R19.7 Diarrhea, unspecified; R16.0 Hepatomegaly, not elsewhere classified; I10 Essential (primary) hypertension
CPT/HCPCS: 36415; 74177; 80053; 81003; 83690; 84703; 85025; 96361; 96374; 96375; 99285; J1170; J2270; J2405; J7030; Q9967

== ENCOUNTER → 2023-04-09 10:53 | Outpatient (BNVA) | payer MEDICAID, SELFPAY | PROVIDERS: PCP Family Medicine; Visit Provider Nurse Practitioner Family | DX: R09.81 Nasal congestion (principal); J02.9 Acute pharyngitis, unspecified | CPT/HCPCS: 87400; 87426; 87880 ==

== ENCOUNTER → 2023-06-12 10:15 | Outpatient (BNVA) | payer MEDICAID, SELFPAY | PROVIDERS: PCP Family Medicine; Visit Provider Family Medicine | DX: I10 Essential (primary) hypertension (principal) | CPT/HCPCS: 80048 ==

== ENCOUNTER → 2023-06-20 10:13 | Outpatient (BNVA) | payer MEDICAID, SELFPAY | PROVIDERS: PCP Family Medicine; Visit Provider Obstetrics & Gynecology | DX: Z12.4 Encounter for screening for malignant neoplasm of cervix (principal) | CPT/HCPCS: 87624 ==

== ENCOUNTER 2024-03-05 08:57 | Emergency (ER) | payer MEDICAID, SELFPAY ==
[2024-03-05 09:15] VITALS: BP 118/85; PULSE 88; RESP 17; TEMP 36.6; O2SAT 97; BMI 25.3
--- NOTE | 2024-03-05 09:33 | XR_ITS ---
WS: [id number] Portable AP upright chest, 03/05/2024 Clinical Data: syncope Comparison: PA chest with acute abdomen series, 05/11/2020 Findings: No nodules, masses or effusions are seen. The heart is normal. The pulmonary vascularity is not increased. No pneumonia or pneumothorax is seen. XR/XR chest 1V portable [id number] Impression: Negative chest.
--- NOTE | 2024-03-05 09:34 | ED_ITS ---
HPI - Syncope 2 General: Chief Complaint: Syncope Stated Complaint: passed out wants checked out Time Seen by Provider: 03/05/24 09:20 Source: patient Mode of arrival: ambulatory Limitations: no limitations History of Present Illness: Patient is a 38-year-old female presents to ED today for concern of an episode of epigastric pain and syncope. Patient states she was lying on the couch earlier this morning when she began feeling like she could not breathe. She states this was accompanied along with epigastric pain. She states symptoms lasted approximately 10 minutes. She states she did blackout for a few seconds. She states since this episode she has felt completely normal. She reports a previous episode approximately a month or so ago that was identical. Also remembers having similar pains before her cholecystectomy. Patient does not complain of chest pain. She has no cardiac history. No risk factors for PE. She does have a history of gastric ulcer and is supposed to be taking a PPI but no longer takes this. She denies alcohol use or NSAID use. Onset (ago): hour(s) -: minutes(s) Prodromal symptoms: other (epigastric pain, felt like she couldn't breath) Context: at rest (lying on the couch) Injuries sustained associated with event: none Associated symptoms: Reports abdominal pain (subsided now); Deny chest pain, fever(s), headache(s), lightheadedness or nausea Treatments prior to arrival: none Related Data Home Medications Medication Instructions Recorded Confirmed levonorgestrel-ethinyl estradiol 1 tab PO DAILY 03/05/24 03/05/24 0.1 mg-20 mcg tablet (Vienva) loratadine-pseudoephedrine ER 10 1 tab PO BID 03/05/24 03/05/24 mg-240 mg tablet,extended [id number] (Allergy Relief D-24hr) metoprolol succinate 25 mg 25 mg PO DAILY 03/05/24 03/05/24 tablet,extended release 24 hr Previous Rx's Medication Instructions Recorded hydrochlorothiazide 25 mg tablet 25 mg PO QAM #90 tabs 11/05/23 ondansetron 4 mg disintegrating 4 mg PO Q8H PRN nausea and 01/15/24 tablet vomiting #30 tabs pantoprazole 40 mg tablet,delayed 40 mg PO DAILY 6 weeks #72 tabs 01/15/24 release sucralfate 1 gram tablet (Carafate) 1 g PO BID 6 weeks #74 tabs 01/15/24 Allergies Allergy/AdvReac Type Severity Reaction Status Date / Time amoxicillin Allergy Ryan Verified 01/15/24 12:53 Lip/Tongue/Throat Review of Systems 2 Const: Denies: fever(s), chills, body aches, fatigue or malaise Eyes: Denies: change in vision, blurry vision, photophobia, floaters or seeing flashes Card: Reports: syncope; Denies: chest pain, palpitations, irregular heart rhythm, edema, swelling of feet/ankles, lightheadedness, pre-syncope, dyspnea on exertion, orthopnea, leg pain with exertion or acrocyanosis Resp: Reports: dyspnea (subsided now); Denies: productive cough, non-productive cough, pain on inspiration, hemoptysis or chest congestion GI: Reports: abdominal pain (subsided now); Denies: nausea, vomiting or diarrhea : Denies: flank pain, dysuria or hematuria Musc: Denies: neck pain, back pain, extremity pain, extremity swelling, joint pain or joint swelling Skin/Breast: Denies: rash Neuro: Denies: headache(s), numbness in extremities, weakness in extremities or sensory changes PFSH ED 2 PFSH: Medical History Peptic ulcer disease Overweight (BMI 25.0-29.9) Moderate major depression Contraceptive management Hypertension Surgical History Status post arm lift S/P cholecystectomy Status post abdominoplasty Family History Grandmother Diabetes Denies family history of Colon cancer Ovarian cancer Heart disease Hypercholesteremia Breast cancer Hypertension Uterine cancer Thyroid disease Stroke Social History Smoking and tobacco/nicotine status: former use of tobacco/nicotine Quit status (tobacco/nicotine): has quit using Former quit date comment: quit 11/02 Second hand smoke exposure: No Alcohol intake: current Alcohol intake frequency: holidays/special occasions only Substance/Drug Use: former Former substance use details: meth (2016 last use) Physical Exam 2 Const: COMMON NORMALS: no acute distress, average body habitus, patient oriented x3, no limitations, healthy appearing, alert and well nourished G ENERAL APPEARANCE: cooperative ORIENTATION/CONSCIOUSNESS: Yes awake, Yes oriented to person, Yes oriented to place and Yes oriented to time Neck/C-Spine: COMMON NORMALS: no JVD Chest: COMMONS NORMALS: normal inspection of the chest and normal palpation of entire chest wall Resp: COMMON NORMALS: normal respiratory effort and clear to auscultation bilaterally AUSCULTATION: clear to auscultation bilaterally Cardio: COMMON NORMALS: no JVD, regular rate and regular rhythm RATE: r egular rate RHYTHM: regular rhythm GI: COMMON NORMALS: Normal to inspection, nondistended, normoactive bowel sounds present, Soft to palpation, No hepatosplenomegaly present and no masses INSPECTION: Yes normal to inspection AUSCULTATION: Yes normoactive bowel sounds PALPATION: Yes Soft to palpation, Yes Tenderness to palpation present (GI) (mild epigastric/LUQ), No Guarding due to palpation present (GI), No Rigid due to palpation and Yes No hepatosplenomegaly present : COMMON NORMALS: Yes no CVA tenderness BLADDER/KIDNEY EXAM: Yes no CVA tenderness Back/Pelvis: COMMON NORMALS: no CVA tenderness Extremity: COMMON NORMALS: capillary refill normal GENERAL: Yes normal exam except as noted Neuro: COMMON NORMALS: patient oriented x3, moves all extremities, no focal motor deficits, no sensory deficits noted and gait normal S ENSORIUM/ORIENTATION: Yes alert, Yes oriented to person, Yes oriented to place and Yes oriented to time Course 2 Vital Signs: Vital signs: Vital Signs Temperature 97.8 F 03/05/24 09:15 Pulse Rate 92 03/05/24 09:47 Respiratory Rate 16 03/05/24 10:27 Blood Pressure 117/88 03/05/24 10:27 Pulse Oximetry 99 03/05/24 10:27 Oxygen Delivery Me thod Room Air 03/05/24 09:15 MDM - Syncope Medical Decision Making Patient is a 38-year-old female here wanting to get checked out for an episode that happened earlier this morning. Upon arrival to the emergency department she is completely asymptomatic and has stayed asymptomatic throughout her stay. She essentially complained of an episode of epigastric pain, trouble breathing, and blacking out earlier today while resting on the couch. Patient states she has had similar episodes previously. Patient's vital signs are stable. Her blood work overall is unremarkable. Her baseline troponin, EKG, CXR all normal. She states she has an upcoming appointment with her primary care provider that she follow-up with. Patient supposed to be taking a PPI although she has not been taking this. We did discuss possibly restarting this vs speaking to primary care. Return ED precautions given. Medical Records I reviewed the patient's medical records. Lab Data I reviewed the patient's lab results. 03/05/24 09:43 03/05/24 09:43 Radiology Impressions Chest X-Ray 03/05/24 09:33 Impression: Negative chest. Laboratory Results WBC 6.90 10^3/uL (3.29-11.43) 03/05/24 09:43 RBC 4.78 10^6/uL (3.85-5.65) 03/05/24 09:43 Hgb 14.30 g/dL (11.27-16.99) 03/05/24 09:43 Hct 42.8 % (36-47) 03/05/24 09:43 MCV 89.5 fl (85-98) 03/05/24 09:43 MCH 29.9 pg (27-33) 03/05/24 09:43 MCHC 33.4 g/dL (30-55) 03/05/24 09:43 RDW 11.6 % (12.1-15.1) L 03/05/24 09:43 Plt Count 453 10^3/cmm (157-399) H 03/05/24 09:43 MPV 8.4 fL (7.4-10.4) 03/05/24 09:43 Neut % (Auto) 66.8 % 03/05/24 09:43 Lymph % (Auto) 25.2 % 03/05/24 09:43 [place] % (Auto) 6.2 % 03/05/24 09:43 Eos % (Auto) 0.9 % 03/05/24 09:43 Baso % (Auto) 0.6 % 03/05/24 09:43 Neut # (Auto) 4.61 10^3/uL (1.8-7.7) 03/05/24 09:43 Lymph # (Auto) 1.7 10^3/uL (0.8-4.8) 03/05/24 09:43 [place] # (Auto) 0.4 10^3/uL (0.2-0.9) 03/05/24 09:43 Eos # (Auto) 0.1 10^3/uL (0.0-0.8) 03/05/24 09:43 Baso # (Auto) 0.0 10^3/uL (0.0-0.1) 03/05/24 09:43 Nucleated RBC % (auto) 0 % 03/05/24 09:43 Nucleated RBCs # 0.0 /100WBC 03/05/24 09:43 Sodium 135 mmol/L (136-145) L 03/05/24 09:43 Potassium 3.4 mmol/L (3.5-5.1) L 03/05/24 09:43 Chloride 97 mmol/L (98-107) L 03/05/24 09:43 Carbon Dioxide 30 mmol/L (22-29) H 03/05/24 09:43 Anion Gap 11.4 (5-19) 03/05/24 09:43 BUN 16 mg/dL (6-20) 03/05/24 09:43 Creatinine 0.5 mg/dL (0.5-0.9) 03/05/24 09:43 GFR Calculation 137.4 mL/min (90-130) H 03/05/24 09:43 Glucose 86 mg/dL (65-115) 03/05/24 09:43 Calculated Osmolality 280 mOsm/kg (285-295) L 03/05/24 09:43 Calcium 9.1 mg/dL (8.5-10.5) 03/05/24 09:43 Total Bilirubin 0.8 mg/dL (0.15-1.2) 03/05/24 09:43 AST 17 U/L (0-32) 03/05/24 09:43 ALT 16 U/L (0-33) 03/05/24 09:43 Alkaline Phosphatase 76 U/L (35-105) 03/05/24 09:43 Troponin T Baseline < 6 ng/L (0-10) 03/05/24 09:43 Total Protein 6.4 g/dL (6.6-8.7) L 03/05/24 09:43 Albumin 4.0 g/dL (3.5-5.2) 03/05/24 09:43 Globulin 2.4 g/dL (1.3-4.6) 03/05/24 09:43 Lipase 33 U/L (13-60) 03/05/24 09:43 All radiology interpretation(s) finalized by discharge Discharge Plan Discharge Patient Disposition: Home Clinical Impression: Colicky epigastric pain, Syncope Condition: Stable Prescriptions: No Action sucralfate [Carafate] 1 gram tablet 1 g PO BID 42 Days Qty: 74 0RF pantoprazole 40 mg tablet,delayed release (DR/EC) 40 mg PO DAILY 42 Days Qty: 72 0RF ondansetron 4 mg tablet,disintegrating 4 mg PO Q8H PRN (Reason: nausea and vomiting) Qty: 30 0RF hydrochlorothiazide 25 mg tablet 25 mg PO QAM Qty: 90 1RF Allergy Relief D-24hr 10-240 mg Tablet Extended Release 24 Hr 1 tab PO BID levonorgestrel-ethinyl estrad [Vienva] 0.1-20 mg-mcg tablet 1 tab PO DAILY Rx Instructions: TAKE 1 TABLET BY MOUTH DAILY metoprolol succinate 25 mg tablet extended release 24 hr 25 mg PO DAILY Rx Instructions: TAKE 1 TABLET BY MOUTH DAILY Discharge Orders: Discharge ED (Routine); Ordered 03/05/24 Ordered By: Charito Morales Referrals: Nelson Dudley MD [Primary Care Provider] - Patient Instructions: Abdominal Pain (ED) Coding Level of Care Code ED Assistant Toddler Teacher for Deborah Escalona
--- NOTE | 2024-03-05 09:44 | ECG_ITS ---
[employer] Test Date: 2024-03-05 Pat Name: Margret Duran Department: Room: Gender: Female Mud Logger: : 1985 Requested By: Charito Morales Order Number: [id number] Carlos MD: Beau Mendieta M.D. Measurements Intervals [place] Rate: 80 P: 9 [place]: 140 QRS: 58 QRSD: 95 T: 44 QT: 383 QTc: 444 Interpretive Statements SINUS RHYTHM LOW QRS VOLTAGE IN PRECORDIAL LEADS [QRS DEFLECTION < 1.0 mV IN CHEST LEADS] Compared to ECG 02/27/2018 06:26:49 Low QRS voltage now present Electronically Signed On 03-06-2024 23:27:55 HALF BACKER by Beau Mendieta M.D. [email or web address]
[2024-03-05 09:47] VITALS: BP 113/72; PULSE 92; RESP 16; O2SAT 98
[2024-03-05 09:53] LABS: Basophils % 0.6 %; Eosinophils # 0.1 10^3/uL (0.0-0.8); Eosinophils % 0.9 %; Hematocrit 42.8 % (36-47); Lymphocytes # 1.7 10^3/uL (0.8-4.8); Lymphocytes % 25.2 %; Mean Corpuscular HGB Conc 33.4 g/dL (30-55); Mean Corpuscular Hemoglobin 29.9 pg (27-33); Mean Corpuscular Volume 89.5 fl (85-98); Mean Platelet Volume 8.4 fL (7.4-10.4); Monocytes # 0.4 10^3/uL (0.2-0.9); Monocytes % 6.2 %; Neutrophils # 4.61 10^3/uL (1.8-7.7); Neutrophils % 66.8 %; Nucleated Red Blood Cells % 0 %; Platelet Count 453 10^3/cmm (157-399); Red Blood Count 4.78 10^6/uL (3.85-5.65); Red Cell Distribution Width 11.6 % (12.1-15.1)
[2024-03-05 10:08] LABS: Alanine Aminotransferase 16 U/L (0-33); Alkaline Phosphatase 76 U/L (35-105); Anion Gap 11.4 (5-19); Aspartate Amino Transferase 17 U/L (0-32); Blood Urea Nitrogen 16 mg/dL (6-20); Calcium 9.1 mg/dL (8.5-10.5); Carbon Dioxide 30 mmol/L (22-29); Chloride 97 mmol/L (98-107); Creatinine Clr Calc Pharmacy 136.8487; Globulin 2.4 g/dL (1.3-4.6); Glomerular Filtration Rate 137.4 mL/min (90-130); Glucose 86 mg/dL (65-115); Lipase 33 U/L (13-60); Osmolality Calculated 280 mOsm/kg (285-295); Potassium 3.4 mmol/L (3.5-5.1); Sodium 135 mmol/L (136-145); Total Bilirubin 0.8 mg/dL (0.15-1.2); Total Protein 6.4 g/dL (6.6-8.7)
[2024-03-05 10:13] LABS: Troponin(5th) Baseline < 6 ng/L (0-10)
[2024-03-05 10:27] VITALS: BP 117/88; RESP 16; O2SAT 99
[2024-03-05 10:48] VITALS: BP 109/89; PULSE 84; RESP 16; O2SAT 99
== END 2024-03-05 10:49 | disposition home or self-care (01) ==
PROVIDERS: Emergency Provider Physician Assistant; PCP Family Medicine
DX: R10.13 Epigastric pain (principal); R55 Syncope and collapse; I10 Essential (primary) hypertension
CPT/HCPCS: 36415; 71045; 80053; 83690; 84484; 85025; 93005; 99285

== ENCOUNTER → 2024-06-08 11:40 | Outpatient (BNVA) | payer MEDICAID, SELFPAY | PROVIDERS: PCP Family Medicine; Visit Provider Family Medicine | DX: K27.9 Peptic ulcer, site unspecified, unspecified as acute or chronic, without hemorrhage or perforation (principal) | CPT/HCPCS: 87338 ==

== ENCOUNTER → 2024-07-15 11:36 | Outpatient (BNVA) | payer MEDICAID, SELFPAY | PROVIDERS: PCP Family Medicine; Visit Provider Family Medicine | DX: Z01.419 Encounter for gynecological examination (general) (routine) without abnormal findings (principal); I10 Essential (primary) hypertension | CPT/HCPCS: 80053; 80061; 84443; 85025; 87624 ==

== ENCOUNTER → 2024-12-30 08:35 | Outpatient (BNVA) | payer MEDICAID, SELFPAY | PROVIDERS: PCP Family Medicine; Visit Provider Family Medicine | DX: I10 Essential (primary) hypertension (principal) | CPT/HCPCS: 80048 ==

== ENCOUNTER 2025-02-09 11:52 | Emergency (ER) | payer MEDICAID, SELFPAY ==
[2025-02-09 11:56] VITALS: BP 120/87; PULSE 83; RESP 16; TEMP 36.6; O2SAT 97; BMI 26.4
--- OUTSIDE RECORDS SUMMARY | 2025-02-09 11:56 | XMS_ITS | Patient Health Record ---
Author Organization [facility] Address [address] [place] [address] Care Team Providers Care Historic Sites Supervisor Name Role Phone [facility] Primary Care Provider [phone] [facility] Unavailable Unavailable Allergies No Known Allergies Reason For Referral No Information Medications Medication SIG (Take, Route, Frequency, Duration) Notes Start Date End Date Status Phentermine HCl 37.5 MG Tablet one table t every day Oral Once a day; Duration: 30 days 05/30/2022 Active Vienva 0.1-20 MG-MCG Tablet TAKE 1 TABLE T BY MOUTH DAILY Oral; Duration: 84 Active Metoprolol Succinate ER 25 M G Tablet Extended Release 24 Hour TAKE 1 TABLET BY MOUTH ONCE DAILY Diagnosis Unavailable Oral; Duration: 30 Active hydroCHLOROthiazide 25 MG Tablet TAKE 1 TABLET BY MOUTH IN THE MORNING Diagnosis Unavailable Oral; Duration: 30 Active Albuterol Sulfate HFA 108 (9 0 Base) MCG/ACT Aerosol Solution 2 puffs Inhalation four times a day prn; Duration: 30 days Active Social History Social History Depression Screening Social Info Question Answer Notes depression screening findings Findings Negative (0 -4) PHQ-9 Little interest or p lali in doing things Not at all Feeling down, depressed, or hopeless Not at all Trouble falling or staying asleep, or sleeping t oo much Several days Feeling tired or having little energy Not at all Poor appetite or overeating Not at all Feeling bad about yourself, or that you are a failure, or have let yourself or your family down Not at all Trouble concentrating on thi ngs, such as reading the newspaper or watching television Not at all Moving or speaking so slowly that other people could have noticed. Or the opposite ? being so fidgety or restless that you have been moving around a lot more than usual Not at all Thoughts that you would be b chasidy off , or of hurting yourself in some way Not at all Total Score 1 Interpretation Minimal Depression Drugs/Alcohol: Social Info Question Answer Notes Alcohol Screen (Audit-C) Did you have a drink containing alcohol in the past year? Yes How often did you have a drink containing alcohol in the past year? Monthly or less (1 point) How many drinks did you have on a typical day when you were drinking in the past year? 1 or 2 drinks (0 point) How often did you have 6 or more drinks on one occasion in the past year? Never (0 point) Points 1 Interpretation Negative Drugs Have you used drugs other than those for medical reasons in the past 12 months? No Tobacco Use: Social Info Question Answer Notes xTobacco Use/Smoking Additional Findings: Tobacco User e-Cigarette Additional Details Category Social Info Options Details Drugs/Alcohol: Do you smoke marijuana? De nies Do you drink alcohol? Yes Section Notes: 03/28/2022 PHQ-9 03/28/2022 PHQ-9 Depression screen completed 05/30/2022 score 1 Problems Problem Type SNOMED Code ICD Code Onset Dates Problem Status W/U Status Risk Notes Problem Obesity (807565160) Obesity (BMI 30-39.9) (E66.9) Active confirmed Problem Hypoglycemia (123927745) Hypoglycemia (E16.2) Active confirmed Problem Body mass index 30.00 to 34.99 (204842134655749 ) Body mass index [BMI] 32.0-32.9, adult (Z68.32) Active confirmed Problem Body mass index 30.00 to 34.99 (808872374376689 ) Body mass index [BMI] 33.0-33.9, adult (Z68.33) Active confirmed Problem Body mass index 30.00 to 34.99 (122758508820696 ) Body mass index [BMI] 34.0-34.9, adult (Z68.34) Active confirmed Problem Body mass index 35.00 to 39.99 (142450093837690 ) Body mass index [BMI] 36.0-36.9, adult (Z68.36) Active confirmed Problem Primary hypertension (60879933) Primary hypertension (I10) Active confirmed Plan Of Treatment No Information Insurance Providers Payer Name Payer Address Payer Phone Subscriber Number Group Number Insured Name Patient Relationship to Insured Coverage Start Date Coverage End Date [facility] Medicaid Replacement [address] [place] [address] [id number] Margret Duran Self - patient is the insured Medical (General) History Medical History History ICD Code anxiety High Blood Pressure covid x4 Surgical History Surgery Date(Month/Year) abdominalplasty 2019 cholecystectomy Hospitalization History Reason Date(Month/Year) see surgical history childbirth x4
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
[2025-02-09 12:03] VITALS: BP 120/87; PULSE 80; RESP 14; O2SAT 97
--- NOTE | 2025-02-09 12:07 | CT_ITS ---
WS: [id number] CT ABDOMEN PELVIS TECHNIQUE: Contrast-enhanced CT of the abdomen and pelvis with coronal and sagittal reformatted images. CLINICAL INFORMATION: abd pain COMPARISON: CT 2022 DLP: 401.[address] scans at [facility] use at least one of these dose optimization techniques: automated exposure control; mA and/or kV adjustment per patient size (includes targeted exams where dose is matched to clinical indication); or iterative reconstruction. FINDINGS: Prior cholecystectomy. Mild intrahepatic biliary ductal dilatation similar to previous. Normal portal vein and splenic vein. Lung bases are well aerated. Adrenal glands are normal. Normal pancreatic parenchymal enhancement. Normal caliber abdominal aorta. Celiac and SMA are patent. Adrenal glands are normal. No hydronephrosis in either kidney. Appendix not visualized. Sigmoid diverticulosis. No evidence of acute diverticulitis. Moderate transverse colon constipation. Stable sclerotic lesion LEFT ilium. CT/CT abdomen pelvis w con* [id number] IMPRESSION: 1. Prior cholecystectomy with mild intrahepatic biliary ductal dilatation unch anged. Common bile duct measures 6 mm unchanged. 2. Stable hepatomegaly. 3. Normal renal parenchymal enhancement. No hydronephrosis. 4. Moderate RIGHT colon and transverse colon constipation. 5. Sigmoid diverticulosis. No evidence of acute diverticulitis. No other acute findings.
--- NOTE | 2025-02-09 12:08 | ED_ITS ---
HPI - Syncope 2 General: Chief Complaint: Syncope Stated Complaint: abd pain, syncope Time Seen by Provider: 02/09/25 12:00 Source: patient Mode of arrival: ambulatory Limitations: no limitations History of Present Illness: 39-year-old female states that she had s udden onset of epigastric abdominal pain that started an hour ago. States been a sharp pain along with some nausea. States that the pain was so bad she had a syncopal event. States pain has improved but still is 6 out of 10 has had a cholecystectomy in the past. Denies any gastric issues in the past she denies any fevers or diarrhea. Associated symptoms: Reports abdominal pain; Deny chest pain, fever(s) or headache(s) Related Data Home Medications ?Medication ?Instructions ?Recorded ?Confirmed lactobacillus comb no.10 20 20,000 mmu cells PO DAILY 02/09/25 02/09/25 billion cell capsule (Probiotic) Previous Rx's ?Medication ?Instructions ?Recorded levonorgestrel-ethinyl estradiol 1 tab PO DAILY #84 ta bs 12/06/24 0.1 mg-20 mcg tablet (Vienva) hydrochlorothiazide 25 mg tablet 25 mg PO QAM #90 tabs 12/30/24 metoprolol succinate 25 mg 12.5 mg (1/2 x 25 mg) PO DA EVELINA #45 12/30/24 tablet,extended release 24 hr tabs famotidine 20 mg tablet (Acid 20 mg PO BID 6 weeks #84 tabs 01/20/25 Heating And Cooling Technician (famotidine)) sucralfate 1 gram tablet 1 g PO TID 8 weeks #168 tabs 01/20/25 hydrocodone 5 mg-acetaminophen 325 1 tab PO Q8H PRN pa in #14 tabs 02/09/25 mg tablet ondansetron 4 mg disintegrating 4 mg PO Q6H PRN nausea and 02/09/25 tablet vomiting #14 tabs Allergies Allergy/AdvReac Type Severity Reaction Status Date / Time amoxicillin Allergy ALGY-Swell Verified 02/09/25 11:53 Lip/Tongue/Throat Review of Systems 2 Const: Denies: fever(s), chills, body aches or change in appetite Eyes: Denies: blurry vision or eye discomfort ENMT: Denies: throat pain or dental pain Card: Denies: chest pain Resp: Denies: dyspnea GI: Reports: abdominal pain : Denies: dysuria Musc: Denies: neck pain or back pain Skin/Breast: Denies: rash Neuro: Denies: headache(s) Psych: Denies: depression Stephen/Lymph: Denies: easy bruising All/Imm: Denies: urticaria PFSH ED 2 PFSH: Medical History (Updated 02/09/25 @ 14:08 by Sergio Pat MD) Peptic ulcer disease Overweight (BMI 25.0-29.9) Moderate major depression Contraceptive management Hypertension Surgical History Status post arm lift S/P cholecystectomy Status post abdominoplasty Family History Grandmother Diabetes Denies family history of Colon cancer Ovarian cancer Heart disease Hypercholesteremia Breast cancer Hypertension Uterine cancer Thyroid disease Stroke Social History Smoking and tobacco/nicotine status: unknown if used tobacco/nicotine Quit status (tobacco/nicotine): has quit using Former quit date comment: quit 11/02 Second hand smoke exposure: No Alcohol intake: current Alcohol intake frequency: holidays/special occasions only Substance/Drug Use: former Former substance use details: meth (2016 last use) Female Reproductive History: Date of last menstrual period: 01/31/25 Physical Exam 2 Const: COMMON NORMALS: no acute distress, patient oriented x3 and healthy appearing HENMT: COMMON NORMALS: normocephalic and atraumatic HEAD & SCALP: n ormocephalic and atraumatic Neck/C-Spine: COMMON NORMALS: full ROM and supple Chest: COMMONS NORMALS: normal inspection of the chest Resp: COMMON NORMALS: normal respiratory effort, No retractions, No use of accessory muscles and clear to auscultation bilaterally AUSCULTATION: clear to auscultation bilaterally Cardio: COMMON NORMALS: regular rate, regular rhythm and No murmurs present (Cardio) RATE: regular rate RHYTHM: regular rhythm GI: COMMON NORMALS: Normal to inspection, nondistended, normoactive bowel sounds present, Soft to palpation and no masses PALPATION: Yes Soft to palpation OTHER: epigastric tenderness Extremity: COMMON NORMALS: normal to inspection and full ROM Neuro: COMMON NORMALS: patient oriented x3, moves all extremities and no focal motor deficits Psych: COMMON NORMALS: mental status grossly normal, Normal thought process present and cooperative THOUGHT PROCESS: Normal thought process present Skin: COMMON NORMALS: no rashes or lesions noted and no wounds GENERAL SKIN EXAM: no rashes or lesions noted Course 2 Vital Signs: Vital signs: Vital Signs Temperature 97.8 F 02/09/25 11:56 Pulse Rate 81 02/09/25 14:00 Respiratory Rate 17 02/09/25 14:00 Blood Pressure 118/76 02/09/25 14:00 Pulse Oximetry 97 02/09/25 14:00 Oxygen Delivery Me thod Room Air 02/09/25 14:00 MDM - Syncope Medical Decision Making 39-year-old female who presents with abdominal pain along with syncope differential includes AAA, pancreatitis, cholecystitis. Patient CT scan of her abdomen showed no acute abnormalities her labs here showed no significant abnormality EKG was interpreted by me at 1328 showed normal sinus rhythm heart rate [address] elevation QRS 105 QTc 425. This is likely gastric pain has a history of gastric ulcers in the past felt much improved after GI cocktail she is continue meds at home she is stable for discharge follow-up PCP return if worsening. Medical Records I reviewed the patient's medical records. Lab Data I reviewed the patient's lab results. 02/09/25 12:08 02/09/25 12:08 Radiology Impressions Abdomen/Pelvis CT 02/09/25 12:07 IMPRESSION: 1. Prior cholecystectomy with mild intrahepatic biliary ductal dilatation unchanged. Common bile duct measures 6 mm unchanged. 2. Stable hepatomegaly. 3. Normal renal parenchymal enhancement. No hydronephrosis. 4. Moderate RIGHT colon and transverse colon constipation. 5. Sigmoid diverticulosis. No evidence of acute diverticulitis. No other acute findings. Laboratory Results WBC 10.69 10^3/uL (3.29-11.43) 02/09/25 12:08 RBC 4.77 10^6/uL (3.85-5.65) 02/09/25 12:08 Hgb 14.40 g/dL (11.27-16.99) 02/09/25 12:08 Hct 41.9 % (36-47) 02/09/25 12:08 MCV 87.8 fl (85-98) 02/09/25 12:08 MCH 30.2 pg (27-33) 02/09/25 12:08 MCHC 34.4 g/dL (30-55) 02/09/25 12:08 RDW 11.3 % (12.1-15.1) L 02/09/25 12:08 Plt Count 503 10^3/cmm (157-399) H 02/09/25 12:08 MPV 8.9 fL (7.4-10.4) 02/09/25 12:08 Neut % (Auto) 53.3 % 02/09/25 12:08 Lymph % (Auto) 37.9 % 02/09/25 12:08 Young % (Auto) 7.0 % 02/09/25 12:08 Eos % (Auto) 0.9 % 02/09/25 12:08 Baso % (Auto) 0.7 % 02/09/25 12:08 Neut # (Auto) 5.70 10^3/uL (1.8-7.7) 02/09/25 12:08 Lymph # (Auto) 4.1 10^3/uL (0.8-4.8) 02/09/25 12:08 Young # (Auto) 0.8 10^3/uL (0.2-0.9) 02/09/25 12:08 Eos # (Auto) 0.1 10^3/uL (0.0-0.8) 02/09/25 12:08 Baso # (Auto) 0.1 10^3/uL (0.0-0.1) 02/09/25 12:08 Nucleated RBC % (auto) 0 % 02/09/25 12:08 Nucleated RBCs # 0.0 /100WBC 02/09/25 12:08 Sodium 135 mmol/L (136-145) L 02/09/25 12:08 Potassium 3.1 mmol/L (3.5-5.1) L 02/09/25 12:08 Chloride 97 mmol/L (98-107) L 02/09/25 12:08 Carbon Dioxide 26 mmol/L (22-29) 02/09/25 12:08 Anion Gap 15.1 (5-19) 02/09/25 12:08 BUN 16 mg/dL (6-20) 02/09/25 12:08 Creatinine 0.6 mg/dL (0.5-0.9) 02/09/25 12:08 GFR Calculation 110.7 mL/min (90-130) 02/09/25 12:08 Glucose 99 mg/dL (65-115) 02/09/25 12:08 Calculated Osmolality 281 mOsm/kg (285-295) L 02/09/25 12:08 Lactic Acid 1.1 mmol/L (0.5-2.2) 02/09/25 12:08 Calcium 8.8 mg/dL (8.5-10.5) 02/09/25 12:08 Total Bilirubin 1.1 mg/dL (0.15-1.2) 02/09/25 12:08 AST 23 U/L (0-32) 02/09/25 12:08 ALT 20 U/L (0-33) 02/09/25 12:08 Alkaline Phosphatase 66 U/L (35-105) 02/09/25 12:08 Total Protein 6.6 g/dL (6.6-8.7) 02/09/25 12:08 Albumin 4.1 g/dL (3.5-5.2) 02/09/25 12:08 Globulin 2.5 g/dL (1.3-4.6) 02/09/25 12:08 Lipase 34 U/L (13-60) 02/09/25 12:08 HCG, Qual Negative (Negative) 02/09/25 12:08 All radiology interpretation(s) finalized by discharge Discharge Plan Discharge Patient Disposition: Home Clinical Impression: Abdominal pain, Syncope Condition: Stable Prescriptions: New hydrocodone-acetaminophen 5-325 mg tablet 1 tab PO Q8H PRN (Reason: pain) Qty: 14 0RF ondansetron 4 mg tablet,disintegrating 4 mg PO Q6H PRN (Reason: nausea and vomiting) Qty: 14 0RF No Action hydrochlorothiazide 25 mg tablet 25 mg PO QAM Qty: 90 1RF metoprolol succinate 25 mg tablet extended release 24 hr 12.5 mg PO DAILY Qty: 45 1RF sucralfate 1 gram tablet 1 g PO TID 56 Days Qty: 168 0RF famotidine [Acid Heating And Cooling Technician (famotidine)] 20 mg tablet 20 mg PO BID 42 Days Qty: 84 0RF levonorgestrel-ethinyl estrad [Vienva] 0.1-20 mg-mcg tablet 1 tab PO DAILY Qty: 84 0RF Rx Instructions: TAKE 1 TABLET BY MOUTH DAILY Probiotic 20 billion cell Capsule 20,000 mmu cells PO DAILY Rx Instructions: administer with a meal Discharge Orders: Discharge ED (Routine); Ordered 02/09/25 Ordered By: Sergio Pat Referrals: Margret Yoo DO [Primary Care Provider, Family Practice] Discharge Diet: Advance as tolerated Discharge Activity: Resume usual activity Patient Instructions: Syncope (ED), Abdominal Pain (ED), Opioid Safety Print Language: Polish Coding Level of Care Code ED [employer] Technician for Deborah Escalona
[2025-02-09 12:14] VITALS: RESP 16
[2025-02-09 12:14] LABS: Hematocrit 41.9 % (36-47); Hemoglobin 14.40 g/dL (11.27-16.99); Mean Corpuscular HGB Conc 34.4 g/dL (30-55); Mean Corpuscular Hemoglobin 30.2 pg (27-33); Mean Corpuscular Volume 87.8 fl (85-98); Nucleated Red Blood Cells % 0 %; Platelet Count 503 10^3/cmm (157-399); Red Blood Count 4.77 10^6/uL (3.85-5.65); White Blood Count 10.69 10^3/uL (3.29-11.43)
[2025-02-09] MEDS: ondansetron 2 mg/ML SDV 2 mL 4 MG IVP (12:14)
[2025-02-09] MEDS: morphine 4 mg/mL SDV 1 mL IVP (12:14)
--- NOTE | 2025-02-09 12:26 | PC.NURSE ---
pt mother came to nurses station to summon RN regarding patient pain increasing after receiving IV morphine, additionally reports her BP going up and patient is super clammy , pt BP 120/87 82bpm reports pain 10/10, provider informed
[2025-02-09 12:33] LABS: Alanine Aminotransferase 20 U/L (0-33); Albumin Level 4.1 g/dL (3.5-5.2); Alkaline Phosphatase 66 U/L (35-105); Aspartate Amino Transferase 23 U/L (0-32); Blood Urea Nitrogen 16 mg/dL (6-20); Calcium 8.8 mg/dL (8.5-10.5); Carbon Dioxide 26 mmol/L (22-29); Chloride 97 mmol/L (98-107); Globulin 2.5 g/dL (1.3-4.6); Glucose 99 mg/dL (65-115); Lipase 34 U/L (13-60); Osmolality Calculated 281 mOsm/kg (285-295); Sodium 135 mmol/L (136-145); Total Protein 6.6 g/dL (6.6-8.7)
[2025-02-09] MEDS: HYDROmorphone 0.5 MG/0.5 ML INJ 1 MG IVP (12:34)
[2025-02-09 12:41] LABS: HCG, Serum Qual Negative (Negative)
[2025-02-09 12:42] LABS: Anion Gap 15.1 (5-19); Potassium 3.1 mmol/L (3.5-5.1)
[2025-02-09] MEDS: iohexol 350 mg/mL 500 mL Btl (per mL) IV (13:02)
[2025-02-09 13:13] VITALS: BP 116/78; PULSE 93; RESP 16; O2SAT 99
[2025-02-09] MEDS: metoclopramide 5 mg/mL SDV 2 mL 10 MG IVP (13:42)
[2025-02-09] MEDS: diphenhydrAMINE 50 mg/mL SDV 1mL IVP (13:42)
--- NOTE | 2025-02-09 13:51 | PC.NURSE ---
ekg given to frankie
[2025-02-09 13:59] LABS: Lactic Sepsis W/Reflex 1.1 mmol/L (0.5-2.2)
[2025-02-09 14:00] VITALS: BP 118/76; PULSE 81; RESP 17; O2SAT 97
--- NOTE | 2025-02-09 14:00 | PC.PHAR ---
Patient states she took a Hydrocodone on Friday . I don't show any script in patients fill history for hydrocodone. .
[2025-02-09] MEDS: lidocaine 2% viscous 15 ML, aluminum-mag hydrox-simethicon 30 ML, sucralfate oral liq 1 GM PO (14:13)
[2025-02-09 14:51] VITALS: BP 109/70; PULSE 74; RESP 16; TEMP 36.6; O2SAT 99
== END 2025-02-09 14:53 | disposition home or self-care (01) ==
PROVIDERS: Emergency Provider Emergency Medicine; PCP Family Medicine
DX: R10.13 Epigastric pain (principal); R55 Syncope and collapse; Z87.891 Personal history of nicotine dependence; I10 Essential (primary) hypertension
CPT/HCPCS: 74177; 80053; 83605; 83690; 84703; 85025; 96374; 96375; 99285; J1171; J1200; J2270; J2405; J2765; J7030; J9999